=== PATIENT | female | born 1985 | race Caucasian/White ===

== ENCOUNTER 2016-12-12 17:03 | Emergency (ER) | payer OTHER ==
[~2016-12-12 17:03] MED LIST: ALBU0.5N IN; ALBU17IN INH; DOCU10ELUD PO; FLAG500T PO; GAS80CHW PO; IBUP100SUS; MEDR1VL IM; PERCOCET PO; TRAZPOW PO; TYLE325T5 PO; VENL37TA PO; VIBR100C PO
--- NOTE | 2016-12-12 17:44 | EDDOCDS ---
Physician Documentation [facility] Name: Jenna Escobar Age: 31 yrs Sex: Female : 1985 Arrival Date: 12/12/2016 Time: 17:03 Bed TR7 Private MD: [facility] Disposition: 12/12/16 17:30 Discharged to Home/Self Care. Impression: Low back pain. - Condition is Stable. - Discharge Instructions: Back Pain, Adult. - Prescriptions for Naprosyn 500 mg Oral Tablet - take 1 tablet by ORAL route 2 times per day take with food; 30 tablet. Cyclobenzaprine 10 mg Oral Tablet - take 1 tablet by ORAL route 3 times per day As needed; 15 tablet. - Medication Reconciliation form. - Follow up: [facility]; When: Call to arrange an appointment; Reason: Wound/Symptom Recheck, Recheck today's complaints, Worsening of conditions, Continuance of care. - Problem is new. - Symptoms are unchanged. Historical: - Allergies: SULFA (SULFONAMIDES); - Home Meds: 1. albuterol sulfate 90 mcg/actuation Inhl HFAA every 4-6 hours 2. albuterol sulfate 2.5 mg /3 mL (0.083 %) Inhl nebu as needed 3. aripiprazole 2 mg Oral tab daily (Last dose: Unknown) 4. buspirone 10 mg Oral tab 2 times per day (Last dose: Unknown) - PMHx: Anxiety; Depression; Asthma; - PSHx: Laparoscopy; D & C; - Social history: Smoking status: Patient states former smoker of tobacco. No barriers to communication noted, The patient speaks fluent Irish, Speaks appropriately for age. - Family history: Not pertinent. - : The pt / caregiver states he / she is not on anticoagulants. Home medication list is obtained from the patient, [employer] import data. - Exposure Risk Screening:: None identified. 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 7 in. (170.18 cm) (R); Pain 06/25; 17:05 Body Mass Index 34.36 (99.52 kg, 170.18 cm) gr2 MDM: 17:22 Urine Dip ordered. cc10 Point of Care Testing: Urine Dip: 17:29 pH: 5; ; Specific [place]: 1.020; Ketones: Negative; Glucose: Negative; Protein: srm Negative; Leukocytes: Negative; Nitrite: Negative ; Blood: Negative; Bilirubin: Negative ; Urobilinogen: Normal Ranges: Signatures: Kandice Guillen, MONIQUE RN srm Lobito Wills, PA-C PA-C cc10 Kia DennisRN RN js15 MTDD
--- NOTE | 2016-12-12 17:44 | EDDOCDS ---
Nurse's Notes [facility] Name: Jenna Escobar Age: 31 yrs Sex: Female : 1985 Arrival Date: 12/12/2016 Time: 17:03 Bed TR7 Private MD: [facility] Diagnosis: Low back pain Presentation: 12/12 17:12 Presenting complaint: Patient states: "This morning I noticed when I bent over there js15 was a pain in my back. I thought it was a kidney infection but it's gotten progressively worse. Now it's in the front on the right side and I'm nauseated". Acute neurological deficits are not present. Mechanism of Injury: No Mechanism of Injury. Adult Sepsis Screening: The patient does not have new or worsening altered mentation. Patient's respiratory rate is less than 22. Systolic blood pressure is greater than 100. Patient has a qSOFA score of 0- Negative Sepsis Screen. Suicide/Homicide risk assessment- the patient denies having any suicidal and/or homicidal ideations and does not present with any other emotional, behavioral or mental health complaints. 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 Transition of care: patient was not received from another setting of care. 17:12 Acuity: CHRISTINE Level 3 js15 17:12 Method Of Arrival: Walkin/Carried/Asstd js15 Triage Assessment: 17:15 General: Appears in no apparent distress, Behavior is appropriate for age, cooperative. js15 Pain: Location: right low back and right lower quadrant Pain currently is 7 out of 10 on a pain scale. Quality of pain is described as sharp. HIV screening NA for this visit Offered previously. GI: Reports nausea. Musculoskeletal: Reports pain in right low back. 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 albuterol sulfate 90 mcg/actuation Inhl HFAA every 4-6 hours 2. albuterol sulfate 2.5 mg /3 mL (0.083 %) Inhl nebu as needed 3. aripiprazole 2 mg Oral tab daily (Last dose: Unknown) 4. buspirone 10 mg Oral tab 2 times per day (Last dose: Unknown) - PMHx: Anxiety; Depression; Asthma; - PSHx: Laparoscopy; D & C; - Social history: Smoking status: Patient states former smoker of tobacco. No barriers to communication noted, The patient speaks fluent Armenian, Speaks appropriately for age. - Family history: Not pertinent. - : The pt / caregiver states he / she is not on anticoagulants. Home medication list is obtained from the patient, [employer] import data. - Exposure Risk Screening:: None identified. Screenin:41 Screening information is obtained from the patient. Fall risk: No risks identified. srm Assistance ADL's: requires no assistance with activities of daily living. Abuse/DV Screen: The patient / caregiver reports he/she is: not in a situation that causes fear, pain or injury. Nutritional screening: No deficits noted. Advance Directives: There is no active DNR order. home support is adequate. Assessment: 17:36 General: Appears in no apparent distress, Behavior is appropriate for age, cooperative. srm Musculoskeletal: Reports pain right lower back. pt upset with discharge dx and instructions. states " i know its not a pulled muscle" but denies any other injuries or symptoms. also states my urine usually comes out clean and they treat me any ways. informed pt that we cant just treat for UTI like symptoms if the urine shows clean. also reiterated urine showed no blood to show kidney stone at this time. encouraged f/u with GME. Vital Signs: 17:05 BP 134 / 80; Pulse 70; Resp 18 S; Temp 97.0(O); Pulse Ox 98% on R/A; Weight 99.52 kg gr2 (M); Height 5 ft. 7 in. (170.18 cm) (R); Pain 8/10; 17:05 Body Mass Index 34.36 (99.52 kg, 170.18 cm) gr2 Vitals: 17:05 Log In Time: December 12, 2016 at 17:05. gr2 ED Course: 17:05 Patient visited by Ramona Adame. gr2 17:05 [facility] is Private Physician. gr2 17:05 Patient moved to Waiting gr2 17:07 Patient visited by Ramona Adame. gr2 17:07 Patient moved to Pre RCE gr2 17:11 Patient moved to Triage 3 [facility] 17:13 Lobito Wills PA-C is [facility]. cc10 17:13 Karin Orozco MD is Attending Physician. cc10 17:14 Triage Initiated js15 17:17 Patient visited by Lobito Wills PA-C. cc10 17:17 Patient visited by Lobito Wills PA-C. cc10 17:29 Patient visited by Kandice Guillen RN. [facility] 17:30 [facility] is Referral Physician. [facility] 17:41 Patient moved to [address] 17:41 The patient / caregiver is instructed regarding the plan of care and ED course. srm Accompanied by Significant Other, Patient has correct armband on for positive identification. 17:41 No IV's were initiated during this patient's visit. No IV's were initiated during this [facility] patient's visit. No procedures done that require assistance. Point of Care Testing: Urine Dip: 17:29 pH: 5; ; Specific [place]: 1.020; Ketones: Negative; Glucose: Negative; Protein: srm Negative; Leukocytes: Negative; Nitrite: Negative ; Blood: Negative; Bilirubin: Negative ; Urobilinogen: Normal Ranges: Order Results: There are currently no results for this order. Outcome: 17:30 Discharge ordered by Provider. [facility] 17:41 Discharge Assessment: Patient awake, alert and oriented x 3. No cognitive and/or srm functional deficits noted. Patient verbalized understanding of disposition instructions. patient administered narcotics - no. The following High Risk Discharge criteria are identified: None. Discharged to home ambulatory, with significant other. Condition: good Condition: stable. Discharge instructions given to patient, Instructed on discharge instructions, follow up and referral plans. medication usage, Demonstrated understanding of instructions, medications, Pt was receptive of discharge instructions/ teaching. Prescriptions given X 2. No special radiology studies were completed. Property :Personal belongings accompany Pt. 17:43 Patient left the ED. srm Signatures: Kandice Guillen, RN RN [facility] Ramona Adame gr2 Lobito Wills PA-C PA-C cc Kia Dennis RN RN js15 Corrections: (The following items were deleted from the chart) 17:43 17:36 Musculoskeletal: Reports pain right lower back. pt upset with discharge dx and srm instructions. states " i know its not a pulled muscle" but denies any other injuries or symptoms. srm MTDD
--- NOTE | 2016-12-14 18:45 | EDDOCDS ---
Nurse's Notes [facility] Name: Jenna Escobar Age: 31 yrs Sex: Female : 1985 Arrival Date: 12/12/2016 Time: 17:03 Bed TR7 Private MD: [facility] Diagnosis: Low back pain Presentation: 12/12 17:12 Presenting complaint: Patient states: "This morning I noticed when I bent over there js15 was a pain in my back. I thought it was a kidney infection but it's gotten progressively worse. Now it's in the front on the right side and I'm nauseated". Acute neurological deficits are not present. Mechanism of Injury: No Mechanism of Injury. Adult Sepsis Screening: The patient does not have new or worsening altered mentation. Patient's respiratory rate is less than 22. Systolic blood pressure is greater than 100. Patient has a qSOFA score of 0- Negative Sepsis Screen. Suicide/Homicide risk assessment- the patient denies having any suicidal and/or homicidal ideations and does not present with any other emotional, behavioral or mental health complaints. 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 Transition of care: patient was not received from another setting of care. 17:12 Acuity: CHRISTINE Level 3 js15 17:12 Method Of Arrival: Walkin/Carried/Asstd js15 Triage Assessment: 17:15 General: Appears in no apparent distress, Behavior is appropriate for age, cooperative. js15 Pain: Location: right low back and right lower quadrant Pain currently is 7 out of 10 on a pain scale. Quality of pain is described as sharp. HIV screening NA for this visit Offered previously. GI: Reports nausea. Musculoskeletal: Reports pain in right low back. 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 albuterol sulfate 90 mcg/actuation Inhl HFAA every 4-6 hours 2. albuterol sulfate 2.5 mg /3 mL (0.083 %) Inhl nebu as needed 3. aripiprazole 2 mg Oral tab daily (Last dose: Unknown) 4. buspirone 10 mg Oral tab 2 times per day (Last dose: Unknown) - PMHx: Anxiety; Depression; Asthma; - PSHx: Laparoscopy; D & C; - Social history: Smoking status: Patient states former smoker of tobacco. No barriers to communication noted, The patient speaks fluent Gibraltarian, Speaks appropriately for age. - Family history: Not pertinent. - : The pt / caregiver states he / she is not on anticoagulants. Home medication list is obtained from the patient, [employer] import data. - Exposure Risk Screening:: None identified. Screenin:41 Screening information is obtained from the patient. Fall risk: No risks identified. srm Assistance ADL's: requires no assistance with activities of daily living. Abuse/DV Screen: The patient / caregiver reports he/she is: not in a situation that causes fear, pain or injury. Nutritional screening: No deficits noted. Advance Directives: There is no active DNR order. home support is adequate. Assessment: 17:36 General: Appears in no apparent distress, Behavior is appropriate for age, cooperative. srm Musculoskeletal: Reports pain right lower back. pt upset with discharge dx and instructions. states " i know its not a pulled muscle" but denies any other injuries or symptoms. also states my urine usually comes out clean and they treat me any ways. informed pt that we cant just treat for UTI like symptoms if the urine shows clean. also reiterated urine showed no blood to show kidney stone at this time. encouraged f/u with GME. Vital Signs: 17:05 BP 134 / 80; Pulse 70; Resp 18 S; Temp 97.0(O); Pulse Ox 98% on R/A; Weight 99.52 kg gr2 (M); Height 5 ft. 7 in. (170.18 cm) (R); Pain 8/10; 17:05 Body Mass Index 34.36 (99.52 kg, 170.18 cm) gr2 Vitals: 17:05 Log In Time: December 12, 2016 at 17:05. gr2 ED Course: 17:05 Patient visited by Ramona Adame. gr2 17:05 [facility] is Private Physician. gr2 17:05 Patient moved to Waiting gr2 17:07 Patient visited by Ramona Adame. gr2 17:07 Patient moved to Pre RCE gr2 17:11 Patient moved to Triage 3 [facility] 17:13 Lobito Wills PA-C is [facility]. cc10 17:13 Karin Orozco MD is Attending Physician. cc10 17:14 Triage Initiated js15 17:17 Patient visited by Lobito Wills PA-C. cc10 17:17 Patient visited by Lobito Wills PA-C. cc10 17:29 Patient visited by Kandice Guillen RN. [facility] 17:30 [facility] is Referral Physician. cc 17:41 Patient moved to [address] 17:41 The patient / caregiver is instructed regarding the plan of care and ED course. srm Accompanied by Significant Other, Patient has correct armband on for positive identification. 17:41 No IV's were initiated during this patient's visit. No IV's were initiated during this [facility] patient's visit. No procedures done that require assistance. 17:50 [facility] Payment Agreement was scanned into [employer] and attached to record. [facility] 17:53 Patient name changed from Jenna\\S\\Paola\\S\\Kimmett\\S\\ to Jenna\\S\\A\\S\\Kimmett. EDND 12/13 07:52 T-Sheet-- Draft Copy was scanned into [employer] and attached to record. [facility] Point of Care Testing: Urine Dip: 12/12 17:29 pH: 5; ; Specific [place]: 1.020; Ketones: Negative; Glucose: Negative; Protein: srm Negative; Leukocytes: Negative; Nitrite: Negative ; Blood: Negative; Bilirubin: Negative ; Urobilinogen: Normal Ranges: Order Results: There are currently no results for this order. Outcome: 17:30 Discharge ordered by Provider. [facility] 17:41 Discharge Assessment: Patient awake, alert and oriented x 3. No cognitive and/or srm functional deficits noted. Patient verbalized understanding of disposition instructions. patient administered narcotics - no. The following High Risk Discharge criteria are identified: None. Discharged to home ambulatory, with significant other. Condition: good Condition: stable. Discharge instructions given to patient, Instructed on discharge instructions, follow up and referral plans. medication usage, Demonstrated understanding of instructions, medications, Pt was receptive of discharge instructions/ teaching. Prescriptions given X 2. No special radiology studies were completed. Property :Personal belongings accompany Pt. 17:43 Patient left the ED. [facility] Signatures: Dispatcher [employer] EDND Wilmer, Kandice, RN Ramona Urbina gr2 Lobito Wills PADavidC PA-C cc10 Kia Dennis RN RN js15 Camilla Strong Sarah seh Corrections: (The following items were deleted from the chart) 17:43 17:36 Musculoskeletal: Reports pain right lower back. pt upset with discharge dx and srm instructions. states " i know its not a pulled muscle" but denies any other injuries or symptoms. srm Chart Complete MTDD
--- NOTE | 2016-12-14 18:45 | EDDOCDS ---
Physician Documentation [facility] Name: Jenna Escobar Age: 31 yrs Sex: Female : 1985 Arrival Date: 12/12/2016 Time: 17:03 Bed TR7 Private MD: [facility] Disposition: 12/12/16 17:30 Discharged to Home/Self Care. Impression: Low back pain. - Condition is Stable. - Discharge Instructions: Back Pain, Adult. - Prescriptions for Naprosyn 500 mg Oral Tablet - take 1 tablet by ORAL route 2 times per day take with food; 30 tablet. Cyclobenzaprine 10 mg Oral Tablet - take 1 tablet by ORAL route 3 times per day As needed; 15 tablet. - Medication Reconciliation form. - Follow up: [facility]; When: Call to arrange an appointment; Reason: Wound/Symptom Recheck, Recheck today's complaints, Worsening of conditions, Continuance of care. - Problem is new. - Symptoms are unchanged. Historical: - Allergies: SULFA (SULFONAMIDES); - Home Meds: 1. albuterol sulfate 90 mcg/actuation Inhl HFAA every 4-6 hours 2. albuterol sulfate 2.5 mg /3 mL (0.083 %) Inhl nebu as needed 3. aripiprazole 2 mg Oral tab daily (Last dose: Unknown) 4. buspirone 10 mg Oral tab 2 times per day (Last dose: Unknown) - PMHx: Anxiety; Depression; Asthma; - PSHx: Laparoscopy; D & C; - Social history: Smoking status: Patient states former smoker of tobacco. No barriers to communication noted, The patient speaks fluent Wolof, Speaks appropriately for age. - Family history: Not pertinent. - : The pt / caregiver states he / she is not on anticoagulants. Home medication list is obtained from the patient, [employer] import data. - Exposure Risk Screening:: None identified. 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 7 in. (170.18 cm) (R); Pain 06/25; 17:05 Body Mass Index 34.36 (99.52 kg, 170.18 cm) gr2 MDM: 17:22 Urine Dip ordered. cc10 17:50 [facility] Payment Agreement was scanned into [employer] and attached to record. [facility] 17:50 Financial registration complete. [facility] 12/13 07:52 T-Sheet-- Draft Copy was scanned into [employer] and attached to record. [facility] Point of Care Testing: Urine Dip: 12/12 17:29 pH: 5; ; Specific [place]: 1.020; Ketones: Negative; Glucose: Negative; Protein: srm Negative; Leukocytes: Negative; Nitrite: Negative ; Blood: Negative; Bilirubin: Negative ; Urobilinogen: Normal Ranges: Signatures: Kandice Guillen RN RN srm Lobito Wills, PA-C PA-C cc10 Kia Dennis RN RN js Camilla Strong [facility] Karin Bang [facility] The chart was reviewed and I authenticate all verbal orders and agree with the evaluation and treatment provided.Attachments: 17:50 [facility] Payment Agreement [facility] 12/13 07:52 T-Sheet-- Draft Copy [facility] Chart Complete MTDD
--- NOTE | 2016-12-14 18:45 | EDDOCDS ---
Physician Documentation [facility] Name: Jenna Escobar Age: 31 yrs Sex: Female : 1985 Arrival Date: 12/12/2016 Time: 17:03 Bed TR7 Private MD: [facility] Disposition: 12/12/16 17:30 Discharged to Home/Self Care. Impression: Low back pain. - Condition is Stable. - Discharge Instructions: Back Pain, Adult. - Prescriptions for Naprosyn 500 mg Oral Tablet - take 1 tablet by ORAL route 2 times per day take with food; 30 tablet. Cyclobenzaprine 10 mg Oral Tablet - take 1 tablet by ORAL route 3 times per day As needed; 15 tablet. - Medication Reconciliation form. - Follow up: [facility]; When: Call to arrange an appointment; Reason: Wound/Symptom Recheck, Recheck today's complaints, Worsening of conditions, Continuance of care. - Problem is new. - Symptoms are unchanged. Historical: - Allergies: SULFA (SULFONAMIDES); - Home Meds: 1. albuterol sulfate 90 mcg/actuation Inhl HFAA every 4-6 hours 2. albuterol sulfate 2.5 mg /3 mL (0.083 %) Inhl nebu as needed 3. aripiprazole 2 mg Oral tab daily (Last dose: Unknown) 4. buspirone 10 mg Oral tab 2 times per day (Last dose: Unknown) - PMHx: Anxiety; Depression; Asthma; - PSHx: Laparoscopy; D & C; - Social history: Smoking status: Patient states former smoker of tobacco. No barriers to communication noted, The patient speaks fluent Tajik, Speaks appropriately for age. - Family history: Not pertinent. - : The pt / caregiver states he / she is not on anticoagulants. Home medication list is obtained from the patient, [employer] import data. - Exposure Risk Screening:: None identified. 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 7 in. (170.18 cm) (R); Pain 06/25; 17:05 Body Mass Index 34.36 (99.52 kg, 170.18 cm) gr2 MDM: 17:22 Urine Dip ordered. cc10 17:50 [facility] Payment Agreement was scanned into [employer] and attached to record. [facility] 17:50 Financial registration complete. [facility] 12/13 07:52 T-Sheet-- Draft Copy was scanned into [employer] and attached to record. [facility] Point of Care Testing: Urine Dip: 12/12 17:29 pH: 5; ; Specific [place]: 1.020; Ketones: Negative; Glucose: Negative; Protein: srm Negative; Leukocytes: Negative; Nitrite: Negative ; Blood: Negative; Bilirubin: Negative ; Urobilinogen: Normal Ranges: Signatures: Kandice Guillen RN RN srm Lobito Wills, PA-C PA-C cc10 Kia Dennis RN RN js Camilla Strong [facility] Karin Bang [facility] The chart was reviewed and I authenticate all verbal orders and agree with the evaluation and treatment provided.Attachments: 17:50 [facility] Payment Agreement [facility] 12/13 07:52 T-Sheet-- Draft Copy [facility] Chart Complete MTDD
== END 2016-12-12 17:43 | disposition home or self-care (01) ==
LOC: M ED 17:03
DX: M54.5 Low back pain (principal); F41.9 Anxiety disorder, unspecified; F32.9 Major depressive disorder, single episode, unspecified; J45.909 Unspecified asthma, uncomplicated; Z87.891 Personal history of nicotine dependence; Z79.3 Long term (current) use of hormonal contraceptives; Z79.899 Other long term (current) drug therapy; Z88.2 Allergy status to sulfonamides

== ENCOUNTER → 2016-12-15 | Outpatient (REF) | payer OTHER ==
[2016-12-15 15:57] LABS: MEAN CORPUSCULAR HEMOGLOBIN 30.1 pg (27.0-33.0); MEAN CORPUSCULAR VOLUME 88.4 fl (80.0-96.0); RED CELL DISTRIBUTION WIDTH 12.7 % (11.5-14.5); WHITE BLOOD COUNT 7.5 K/mm3 (4.0-10.0)
[2016-12-15 16:25] LABS: ALBUMIN 4.1 GM/DL (3.2-5.2); ALBUMIN/GLOBULIN RATIO 1.41 (1.00-1.93); ALKALINE PHOSPHATASE 72 U/L (45-117); ALT/SGPT 22 U/L (12-78); AMYLASE 47 U/L (25-115); ANION GAP 9 MEQ/L (8-16); AST/SGOT 9 U/L (15-37); BILIRUBIN,TOTAL 0.3 MG/DL (0.2-1.0); BLOOD UREA NITROGEN 8 MG/DL (7-18); CALCIUM LEVEL 8.8 MG/DL (8.5-10.1); CARBON DIOXIDE LEVEL 23 MEQ/L (21-32); CHLORIDE LEVEL 109 MEQ/L (98-107); CREATININE FOR GFR 0.65 MG/DL (0.55-1.02); GLOMERULAR FILTRATION RATE > 60.0 (>60); GLUCOSE, FASTING 87 MG/DL (70-105); POTASSIUM SERUM 3.9 MEQ/L (3.5-5.1); SODIUM LEVEL 141 MEQ/L (136-145)
[2016-12-15 21:28] LABS: BASOPHILS 1 % (0-4); EOSINOPHILS 1 % (0-5)
== END ==
LOC: M SFHCPLAZ 14:31
PROVIDERS: ATTEND Family Medicine
DX: R10.11 Right upper quadrant pain (principal)

== ENCOUNTER → 2016-12-17 | Outpatient (CLI) | payer OTHER ==
--- NOTE | 2016-12-17 07:32 | REP ---
Clinical: Right upper quadrant abdominal pain. Technique: Robles scale ultrasound using curved array transducer. Findings: The liver and pancreas are normal in contour, size, and echogenicity without focal hepatic or pancreatic lesions identified. The gallbladder is normal without gallstones, wall thickening or pericholecystic fluid. No biliary ductal dilatation is appreciated, and the common bile duct measures 4.3 mm diameter. The right kidney is normal in reniform shape without hydronephrosis and measures 10.7 x 5.6 x 5.2 cm. No ascites. Visualized portions of the abdominal aorta normal. Impression: Normal right upper quadrant and gallbladder abdominal ultrasound. Signed by Noe Raya MD 12/17/2016 07:23 A
== END ==
LOC: M RAD 06:52
PROVIDERS: ATTEND Family Medicine
DX: R10.11 Right upper quadrant pain (principal)

== ENCOUNTER 2017-01-01 15:59 | Emergency (ER) | payer OTHER ==
--- NOTE | 2017-01-01 16:56 | EDDOCDS ---
Physician Documentation [facility] Name: Jenna Escobar Age: 31 yrs Sex: Female : 1985 Arrival Date: 01/01/2017 Time: 15:59 Bed Triage 1 Private MD: Disposition: 01/01/17 16:48 Discharged to Home/Self Care. Impression: Acute sinusitis, Acute serous otitis media, right ear, Other otitis externa, unspecified ear - Right. - Condition is Stable. - Discharge Instructions: Otitis Externa, Rsqn-en-Ijil, Otitis Media, Adult, Soop-cu-Yudv, Sinusitis, Zwby-un-Dhuy. - Prescriptions for Augmentin 875- 125 mg Oral Tablet - take 1 tablet by ORAL route every 12 hours for 10 days; 20 tablet. Cipro HC 0.2- 1 % Otic Drops, Suspension - instill 3 drops by OTIC route every 12 hours for 7 days Treating Otitis Externa, Right Ear; 10 milliliter. Ibuprofen 800 mg Oral Tablet - take 1 tablet by ORAL route every 8 hours As needed take with food; 30 tablet. - Medication Reconciliation, Local Pharmacy Hours form. - [facility] ; When: 1 - 2 days; Reason: Recheck today's complaints, Continuance of care. Follow up: Emergency Department; Reason: Worsening of conditions. - Problem is new. - Symptoms are unchanged. Historical: - Allergies: SULFA (SULFONAMIDES) (Rash); - Home Meds: 1. albuterol sulfate 90 mcg/actuation Inhl HFAA every 4-6 hours 2. albuterol sulfate 2.5 mg /3 mL (0.083 %) Inhl nebu as needed 3. Depo-Provera 150 mg/mL IM susp every 3 mo 4. Mobic 7.5 mg oral tab - PMHx: Anxiety; Asthma; Depression; - PSHx: Laparoscopy; D & C; - Social history: Smoking status: Patient states former smoker of tobacco. No barriers to communication noted, The patient speaks fluent Turkish. - Family history: Not pertinent. - : The pt / caregiver states he / she is not on anticoagulants. Home medication list is obtained from the patient. - Exposure Risk Screening:: None identified. 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 7 in. (170.18 cm) (R); Pain 6/10; 16:03 Body Mass Index 34.46 (99.79 kg, 170.18 cm) lr2 Signatures: Nba Strong RN RN mlb1 Sheba Vuong PA-C PA-C ef1 Chela Desouza RN RN rs3 MTDD
--- NOTE | 2017-01-01 16:56 | EDDOCDS ---
Nurse's Notes [facility] Name: Jenna Escobar Age: 31 yrs Sex: Female : 1985 Arrival Date: 01/01/2017 Time: 15:59 Bed Triage 1 Private MD: Diagnosis: Acute sinusitis;Acute serous otitis media, right ear;Other otitis externa, unspecified ear-Right Presentation: 01/01 16:03 Presenting complaint: Patient states: sinus pain and pressure for two days. right ear rs3 pain, sore throat today. Adult Sepsis Screening: The patient does not have new or worsening altered mentation. Patient's respiratory rate is less than 22. Systolic blood pressure is greater than 100. Patient has a qSOFA score of 0- Negative Sepsis Screen. Suicide/Homicide risk assessment- the patient denies having any suicidal and/or homicidal ideations and does not present with any other emotional, behavioral or mental health complaints. Status: Patient is not a territory service representative or dependent. Transition of care: patient was not received from another setting of care. 16:03 Acuity: CHRISTINE Level 4 rs3 16:03 Method Of Arrival: Walkin/Carried/Asstd rs3 Triage Assessment: 16:05 General: Appears in no apparent distress. Pain: Location: right ear. HIV screening NA rs3 for this visit Offered previously. EENT: Reports pain Pain is 6 out of 10 on a pain scale. 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 albuterol sulfate 90 mcg/actuation Inhl HFAA every 4-6 hours 2. albuterol sulfate 2.5 mg /3 mL (0.083 %) Inhl nebu as needed 3. Depo-Provera 150 mg/mL IM susp every 3 mo 4. Mobic 7.5 mg oral tab - PMHx: Anxiety; Asthma; Depression; - PSHx: Laparoscopy; D & C; - Social history: Smoking status: Patient states former smoker of tobacco. No barriers to communication noted, The patient speaks fluent Dominican. - Family history: Not pertinent. - : The pt / caregiver states he / she is not on anticoagulants. Home medication list is obtained from the patient. - Exposure Risk Screening:: None identified. Screenin:54 Screening information is obtained from the patient. Fall risk: No risks identified. mlb1 Assistance ADL's: requires no assistance with activities of daily living. Abuse/DV Screen: The patient / caregiver reports he/she is: not in a situation that causes fear, pain or injury. Nutritional screening: No deficits noted. Advance Directives: Currently, there is no health care proxy. home support is adequate. Assessment: 16:53 General: Appears in no apparent distress, Behavior is appropriate for age, cooperative. mlb1 Pain: Location: right ear Pain currently is 6 out of 10 on a pain scale. Respiratory: No deficits noted. Derm: No deficits noted. Vital Signs: 16:03 BP 148 / 81; Pulse 68; Resp 16; Temp 97.4(O); Pulse Ox 98% on R/A; Weight 99.79 kg (R); lr2 Height 5 ft. 7 in. (170.18 cm) (R); Pain 6/10; 16:03 Body Mass Index 34.46 (99.79 kg, 170.18 cm) lr2 Vitals: 16:03 Log In Time: January 01, 2017 at 15:59. lr2 ED Course: 16:01 Patient visited by Brina Trent. lr2 16:01 Patient moved to Waiting lr2 16:02 Patient moved to Pre RCE lr2 16:04 Triage Initiated rs3 16:08 Patient moved to Triage 1 ck1 16:24 [facility] ef1 16:24 Kevin May MD is Attending Physician. ef1 16:31 Patient visited by Sheba Vuong PA-C. ef1 16:48 [facility] is Referral Physician. ef1 16:54 No IV's were initiated during this patient's visit. No procedures done that require mlb1 assistance. 16:55 Patient visited by Nba Strong RN. mlb1 16:55 The patient / caregiver is instructed regarding the plan of care and ED course. mlb1 Order Results: There are currently no results for this order. Outcome: 16:48 Discharge ordered by Provider. ef1 16:54 Discharge Assessment: Patient awake, alert and oriented x 3. No cognitive and/or mlb1 functional deficits noted. Patient verbalized understanding of disposition instructions. patient administered narcotics - no. The following High Risk Discharge criteria are identified: None. Discharged to home ambulatory. Condition: good. Discharge instructions given to patient, Instructed on discharge instructions, follow up and referral plans. medication usage, Demonstrated understanding of instructions, medications, Pt was receptive of discharge instructions/ teaching. Prescriptions given X 3. No special radiology studies were completed. Property sent home with patient. 16:55 Patient left the ED. mlb1 Signatures: Nba Strong RN RN mlb1 Rubia MoniqueRN RN ck1 Sheba Vuong PA-C PA-C ef1 Chela DesouzaRN RN rs3 Brina Trent2 MTDD
--- NOTE | 2017-01-03 17:56 | EDDOCDS ---
Nurse's Notes [facility] Name: Jenna Escobar Age: 31 yrs Sex: Female : 1985 Arrival Date: 01/01/2017 Time: 15:59 Bed Triage 1 Private MD: Diagnosis: Acute sinusitis;Acute serous otitis media, right ear;Other otitis externa, unspecified ear-Right Presentation: 01/01 16:03 Presenting complaint: Patient states: sinus pain and pressure for two days. right ear rs3 pain, sore throat today. Adult Sepsis Screening: The patient does not have new or worsening altered mentation. Patient's respiratory rate is less than 22. Systolic blood pressure is greater than 100. Patient has a qSOFA score of 0- Negative Sepsis Screen. Suicide/Homicide risk assessment- the patient denies having any suicidal and/or homicidal ideations and does not present with any other emotional, behavioral or mental health complaints. 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 Transition of care: patient was not received from another setting of care. 16:03 Acuity: CHRISTINE Level 4 rs3 16:03 Method Of Arrival: Walkin/Carried/Asstd rs3 Triage Assessment: 16:05 General: Appears in no apparent distress. Pain: Location: right ear. HIV screening NA rs3 for this visit Offered previously. EENT: Reports pain Pain is 6 out of 10 on a pain scale. 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 albuterol sulfate 90 mcg/actuation Inhl HFAA every 4-6 hours 2. albuterol sulfate 2.5 mg /3 mL (0.083 %) Inhl nebu as needed 3. Depo-Provera 150 mg/mL IM susp every 3 mo 4. Mobic 7.5 mg oral tab - PMHx: Anxiety; Asthma; Depression; - PSHx: Laparoscopy; D & C; - Social history: Smoking status: Patient states former smoker of tobacco. No barriers to communication noted, The patient speaks fluent Bruneian. - Family history: Not pertinent. - : The pt / caregiver states he / she is not on anticoagulants. Home medication list is obtained from the patient. - Exposure Risk Screening:: None identified. Screenin:54 Screening information is obtained from the patient. Fall risk: No risks identified. mlb1 Assistance ADL's: requires no assistance with activities of daily living. Abuse/DV Screen: The patient / caregiver reports he/she is: not in a situation that causes fear, pain or injury. Nutritional screening: No deficits noted. Advance Directives: Currently, there is no health care proxy. home support is adequate. Assessment: 16:53 General: Appears in no apparent distress, Behavior is appropriate for age, cooperative. mlb1 Pain: Location: right ear Pain currently is 6 out of 10 on a pain scale. Respiratory: No deficits noted. Derm: No deficits noted. Vital Signs: 16:03 BP 148 / 81; Pulse 68; Resp 16; Temp 97.4(O); Pulse Ox 98% on R/A; Weight 99.79 kg (R); lr2 Height 5 ft. 7 in. (170.18 cm) (R); Pain 6/10; 16:03 Body Mass Index 34.46 (99.79 kg, 170.18 cm) lr2 Vitals: 16:03 Log In Time: January 01, 2017 at 15:59. lr2 ED Course: 16:01 Patient visited by Brina Trent. lr2 16:01 Patient moved to Waiting lr2 16:02 Patient moved to Pre RCE lr2 16:04 Triage Initiated rs3 16:08 Patient moved to Triage 1 ck1 16:24 Sheba Vu[facility]C [facility]. ef1 16:24 Kevin May MD is Attending Physician. ef1 16:31 Patient visited by Sheba Vuong PA-C. ef1 16:48 [facility] is Referral Physician. ef1 16:54 No IV's were initiated during this patient's visit. No procedures done that require mlb1 assistance. 16:55 Patient visited by Nba Strong RN. mlb1 16:55 The patient / caregiver is instructed regarding the plan of care and ED course. mlb1 16:58 [facility] Payment Agreement was scanned into [employer] and attached to record. ks16 01/02 11:28 T-Sheet-- Draft Copy was scanned into [employer] and attached to record. gb Order Results: There are currently no results for this order. Outcome: 01/01 16:48 Discharge ordered by Provider. ef1 16:54 Discharge Assessment: Patient awake, alert and oriented x 3. No cognitive and/or mlb1 functional deficits noted. Patient verbalized understanding of disposition instructions. patient administered narcotics - no. The following High Risk Discharge criteria are identified: None. Discharged to home ambulatory. Condition: good. Discharge instructions given to patient, Instructed on discharge instructions, follow up and referral plans. medication usage, Demonstrated understanding of instructions, medications, Pt was receptive of discharge instructions/ teaching. Prescriptions given X 3. No special radiology studies were completed. Property sent home with patient. 16:55 Patient left the ED. mlb1 Signatures: Lashell Claire, Reg Reg gb Nba Strong RN RN mlb1 Rubia Monique RN RN ck1 Sheba Vuong, PA-C PA-C ef1 Chela Desouza RN RN rs3 Tyra Mills, Reg Reg ks16 Brina Trent lr2 Chart Complete MTDD
--- NOTE | 2017-01-03 17:56 | EDDOCDS ---
Physician Documentation [facility] Name: Jenna Escobar Age: 31 yrs Sex: Female : 1985 Arrival Date: 01/01/2017 Time: 15:59 Bed Triage 1 Private MD: Disposition: 01/01/17 16:48 Discharged to Home/Self Care. Impression: Acute sinusitis, Acute serous otitis media, right ear, Other otitis externa, unspecified ear - Right. - Condition is Stable. - Discharge Instructions: Otitis Externa, Xibe-qa-Wugr, Otitis Media, Adult, Ttup-gi-Ytpm, Sinusitis, Tdgv-ve-Wfcq. - Prescriptions for Augmentin 875- 125 mg Oral Tablet - take 1 tablet by ORAL route every 12 hours for 10 days; 20 tablet. Cipro HC 0.2- 1 % Otic Drops, Suspension - instill 3 drops by OTIC route every 12 hours for 7 days Treating Otitis Externa, Right Ear; 10 milliliter. Ibuprofen 800 mg Oral Tablet - take 1 tablet by ORAL route every 8 hours As needed take with food; 30 tablet. - Medication Reconciliation, Local Pharmacy Hours form. - [facility] ; When: 1 - 2 days; Reason: Recheck today's complaints, Continuance of care. Follow up: Emergency Department; Reason: Worsening of conditions. - Problem is new. - Symptoms are unchanged. Historical: - Allergies: SULFA (SULFONAMIDES) (Rash); - Home Meds: 1. albuterol sulfate 90 mcg/actuation Inhl HFAA every 4-6 hours 2. albuterol sulfate 2.5 mg /3 mL (0.083 %) Inhl nebu as needed 3. Depo-Provera 150 mg/mL IM susp every 3 mo 4. Mobic 7.5 mg oral tab - PMHx: Anxiety; Asthma; Depression; - PSHx: Laparoscopy; D & C; - Social history: Smoking status: Patient states former smoker of tobacco. No barriers to communication noted, The patient speaks fluent Frisian. - Family history: Not pertinent. - : The pt / caregiver states he / she is not on anticoagulants. Home medication list is obtained from the patient. - Exposure Risk Screening:: None identified. 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 7 in. (170.18 cm) (R); Pain 6/10; 16:03 Body Mass Index 34.46 (99.79 kg, 170.18 cm) lr2 MDM: 16:57 Financial registration complete. [facility] 16:58 [facility] Payment Agreement was scanned into [employer] and attached to record. 01/02 11:28 T-Sheet-- Draft Copy was scanned into [employer] and attached to record. gb Signatures: Lashell Claire, Reg Reg gb Nba Strong RN RN mlb1 Sheba Vuong, PA-C PA-C ef1 Chela Desouza RN RN rs3 Tyra Mills, Reg Reg ks16 The chart was reviewed and I authenticate all verbal orders and agree with the evaluation and treatment provided.Attachments: 01/01 16:58 [facility] Payment Agreement 01/02 11:28 T-Sheet-- Draft Copy gb Chart Complete MTDD
--- NOTE | 2017-01-03 17:56 | EDDOCDS ---
Physician Documentation [facility] Name: Jenna Escobar Age: 31 yrs Sex: Female : 1985 Arrival Date: 01/01/2017 Time: 15:59 Bed Triage 1 Private MD: Disposition: 01/01/17 16:48 Discharged to Home/Self Care. Impression: Acute sinusitis, Acute serous otitis media, right ear, Other otitis externa, unspecified ear - Right. - Condition is Stable. - Discharge Instructions: Otitis Externa, Gbkx-av-Qvki, Otitis Media, Adult, Sslm-eq-Hlbu, Sinusitis, Tzoj-cw-Bhxx. - Prescriptions for Augmentin 875- 125 mg Oral Tablet - take 1 tablet by ORAL route every 12 hours for 10 days; 20 tablet. Cipro HC 0.2- 1 % Otic Drops, Suspension - instill 3 drops by OTIC route every 12 hours for 7 days Treating Otitis Externa, Right Ear; 10 milliliter. Ibuprofen 800 mg Oral Tablet - take 1 tablet by ORAL route every 8 hours As needed take with food; 30 tablet. - Medication Reconciliation, Local Pharmacy Hours form. - Follow up: [facility] ; When: 1 - 2 days; Reason: Recheck today's complaints, Continuance of care. Follow up: Emergency Department; Reason: Worsening of conditions. - Problem is new. - Symptoms are unchanged. Historical: - Allergies: SULFA (SULFONAMIDES) (Rash); - Home Meds: 1. albuterol sulfate 90 mcg/actuation Inhl HFAA every 4-6 hours 2. albuterol sulfate 2.5 mg /3 mL (0.083 %) Inhl nebu as needed 3. Depo-Provera 150 mg/mL IM susp every 3 mo 4. Mobic 7.5 mg oral tab - PMHx: Anxiety; Asthma; Depression; - PSHx: Laparoscopy; D & C; - Social history: Smoking status: Patient states former smoker of tobacco. No barriers to communication noted, The patient speaks fluent Japanese. - Family history: Not pertinent. - : The pt / caregiver states he / she is not on anticoagulants. Home medication list is obtained from the patient. - Exposure Risk Screening:: None identified. 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 7 in. (170.18 cm) (R); Pain 6/10; 16:03 Body Mass Index 34.46 (99.79 kg, 170.18 cm) lr2 MDM: 16:57 Financial registration complete. [facility] 16:58 [facility] Payment Agreement was scanned into [email or web address] and attached to record. 01/02 11:28 T-Sheet-- Draft Copy was scanned into [email or web address] and attached to record. gb Signatures: Lashell Claire, Reg Reg gb Nba Strong RN RN mlb1 Sheba Vuong, PA-C PA-C ef1 Chela Desouza RN RN rs3 Tyra Mills, Reg Reg ks16 The chart was reviewed and I authenticate all verbal orders and agree with the evaluation and treatment provided.Attachments: 01/01 16:58 [facility] Payment Agreement 01/02 11:28 T-Sheet-- Draft Copy gb Chart Complete MTDD
== END 2017-01-01 16:55 | disposition home or self-care (01) ==
LOC: M ED 15:59
DX: J01.90 Acute sinusitis, unspecified (principal); H66.91 Otitis media, unspecified, right ear; H60.501 Unspecified acute noninfective otitis externa, right ear; F41.9 Anxiety disorder, unspecified; J45.909 Unspecified asthma, uncomplicated; F32.9 Major depressive disorder, single episode, unspecified; Z87.891 Personal history of nicotine dependence; Z79.899 Other long term (current) drug therapy; Z79.3 Long term (current) use of hormonal contraceptives; Z88.2 Allergy status to sulfonamides

== ENCOUNTER → 2017-05-12 | Outpatient (REF) | payer OTHER | LOC: M SFHCPLAZ 13:01 | PROVIDERS: ATTEND Student in an Organized Health Care Education/Training Program | DX: R53.82 Chronic fatigue, unspecified (principal); R10.84 Generalized abdominal pain ==

== ENCOUNTER → 2017-05-20 | Outpatient (REF) | payer OTHER ==
[~2017-05-20] MED LIST changes: +CLAR1TAB2 PO; +DIFL150T PO; +IBUP80TA PO; +LEVAINH INH; +LOES1TAB12 PO; +MUCI600T37 PO; +PANT40TA2 PO; +PARO20TA3 PO; +PROAAER10 INH; +ZITHTAB PO
[2017-05-20 15:00] LABS: FREE T4 0.91 NG/DL (0.76-1.46)
== END ==
LOC: M LABDRAW1 12:59
PROVIDERS: ATTEND Family Medicine
DX: R53.82 Chronic fatigue, unspecified (principal)

== ENCOUNTER → 2017-07-02 | Outpatient (CLI) | payer OTHER ==
[2017-07-06 14:11] LABS: O+P EXAM Final report (.)
== END ==
LOC: M LAB 10:13
PROVIDERS: ATTEND Internal Medicine Gastroenterology
DX: K52.89 Other specified noninfective gastroenteritis and colitis (principal); R19.7 Diarrhea, unspecified

== ENCOUNTER 2017-07-13 09:07 | Outpatient (CLI) | payer OTHER ==
[~2017-07-13] VITALS: Ht 170.2 cm; Wt 97.5 kg
[~2017-07-13 09:07] MED LIST changes: -CLAR1TAB2 PO; -DIFL150T PO; -LEVAINH INH; -MUCI600T37 PO; +NS 1,000 ML IV ONE; -PANT40TA2 PO; -PARO20TA3 PO; -ZITHTAB PO
--- NOTE | 2017-07-13 12:26 | ROOR ---
Patient Name: Jenna Escobar Procedure Date: 07/13/2017 12:00 PM Date of : 1985 Age: 32 Room: [facility] Gender: Female Note Status: Finalized Procedure: Colonoscopy Indications: Chronic diarrhea Providers: Niraj Pacheco MD Referring MD: [facility] D. [facility], Admin. Requesting Provider: Medicines: Monitored Anesthesia Care Complications: No immediate complications. Procedure: Pre-Anesthesia Assessment: - Prior to the procedure, a History and Physical was performed, and patient medications and allergies were reviewed. The patient is competent. The risks and benefits of the procedure and the sedation options and risks were discussed with the patient. All questions were answered and informed consent was obtained. Patient identification and proposed procedure were verified by the physician, the nurse and the anesthesiologist in the procedure room. Mental Status Examination: alert and oriented. Airway Examination: normal oropharyngeal airway and neck mobility. Respiratory Examination: clear to auscultation. CV Examination: normal. Prophylactic Antibiotics: The patient does not require prophylactic antibiotics. Prior Anticoagulants: The patient has taken no previous anticoagulant or antiplatelet agents. ASA Grade Assessment: II - A patient with mild systemic disease. After reviewing the risks and benefits, the patient was deemed in satisfactory condition to undergo the procedure. The anesthesia plan was to use monitored anesthesia care (MAC). Immediately prior to administration of medications, the patient was re-assessed for adequacy to receive sedatives. The heart rate, respiratory rate, oxygen saturations, blood pressure, adequacy of pulmonary ventilation, and response to care were monitored throughout the procedure. The physical status of the patient was re-assessed after the procedure. The Colonoscope was introduced through the anus and advanced to the terminal ileum, with identification of the appendiceal orifice and IC valve. The colonoscopy was performed without difficulty. The patient tolerated the procedure well. The quality of the bowel preparation was good. The terminal ileum, ileocecal valve, appendiceal orifice, and rectum were photographed. Scope insertion time was 2 minutes. Scope withdrawal time was 8 minutes. The total duration of the procedure was 12 minutes. Findings: The perianal and digital rectal examinations were normal. The terminal ileum appeared normal. Biopsies were taken with a cold forceps for histology. Verification of patient identification for the specimen was done by the physician and nurse using the patient's name, date and medical record number. Estimated blood loss was minimal. Non-bleeding external and internal hemorrhoids were found during retroflexion. The hemorrhoids were medium-sized. Biopsies for histology were taken with a cold forceps from the ascending colon, transverse colon, sigmoid colon and rectum for evaluation of microscopic colitis. The exam was otherwise without abnormality. Impression: - The examined portion of the ileum was normal. Biopsied. - Non-bleeding external and internal hemorrhoids. Biopsied. - The examination was otherwise normal. Recommendation: - Patient has a contact number available for emergencies. The signs and symptoms of potential delayed complications were discussed with the patient. Return to normal activities tomorrow. Written discharge instructions were provided to the patient. - Resume previous diet. - Continue present medications. - Await pathology results. - Repeat colonoscopy at age 48 for screening purposes. - Return to GI clinic as previously scheduled 07/29/2017 at 10:30 AM - Return to primary care physician. Niraj Pacheco MD Niraj Pacheco MD 07/13/2017 12:25:51 PM This report has been signed electronically. Number of Addenda: 0 Note Initiated On: 07/13/2017 12:00 PM Estimated Blood Loss: Estimated blood loss: none.
[2017-07-13 12:40] VITALS: BP 140/88
[2017-09-20] MEDS ORDERED: PANT40TA2 PO (09:32)
[2017-09-20] MEDS ORDERED: PARO20TA3 PO (09:32)
[2017-09-20] MEDS ORDERED: CLAR1TAB2 PO (12:26)
[2017-09-20] MEDS ORDERED: ZITHTAB PO (12:26)
[2017-09-20] MEDS ORDERED: LEVAINH INH (12:26)
[2017-09-20] MEDS ORDERED: MUCI600T37 PO (12:26)
[2017-09-20] MEDS ORDERED: DIFL150T PO (12:31)
== END 2017-07-13 12:53 | disposition home or self-care (01) ==
LOC: M OPP 09:07
PROVIDERS: ATTEND Internal Medicine Gastroenterology
DX: K52.9 Noninfective gastroenteritis and colitis, unspecified (principal); K64.4 Residual hemorrhoidal skin tags; K64.8 Other hemorrhoids; M17.10 Unilateral primary osteoarthritis, unspecified knee; F41.9 Anxiety disorder, unspecified; F33.9 Major depressive disorder, recurrent, unspecified; J45.909 Unspecified asthma, uncomplicated; Z79.3 Long term (current) use of hormonal contraceptives; Z88.2 Allergy status to sulfonamides

== ENCOUNTER 2017-12-01 10:19 | Day surgery (SDC) | payer OTHER ==
[2017-12-01] MEDS ORDERED: fentaNYL 100 MCG/2 ML INJECTION (J3010) As Ordered (10:33)
[2017-12-01] MEDS ORDERED: PROPOFOL 200 MG/20 ML VIAL As Ordered ×2 (10:38→11:36)
[2017-12-01] MEDS ORDERED: LIDOCAINE 2% INJ 100 MG/5 ML SDV (FOR ANES.) As Ordered (10:38)
[2017-12-01] MEDS: NS 1,000 ML IV (10:51)
== END 2017-12-01 12:35 | disposition home or self-care (01) ==
LOC: M OPP 10:19
DX: K21.9 Gastro-esophageal reflux disease without esophagitis (principal); K29.70 Gastritis, unspecified, without bleeding; K58.9 Irritable bowel syndrome, unspecified; R12 Heartburn; R06.02 Shortness of breath; M19.90 Unspecified osteoarthritis, unspecified site; F41.9 Anxiety disorder, unspecified; F32.9 Major depressive disorder, single episode, unspecified; R05 Cough; J45.909 Unspecified asthma, uncomplicated; Z88.2 Allergy status to sulfonamides; Z79.899 Other long term (current) drug therapy
CPT/HCPCS: 43239

== ENCOUNTER 2018-01-27 08:51 | Emergency (ER) | payer OTHER ==
[2018-01-27] MEDS: NORCO, ANEXSIA 5/325MG TABLET (HYDROcodone/ACETAMINOPHEN) PO (09:23)
== END 2018-01-27 10:08 | disposition home or self-care (01) ==
LOC: M ED 08:51
DX: S90.32XA Contusion of left foot, initial encounter (principal); W10.8XXA Fall (on) (from) other stairs and steps, initial encounter; Y92.098 Other place in other non-institutional residence as the place of occurrence of the external cause; Z87.891 Personal history of nicotine dependence; Z88.2 Allergy status to sulfonamides; Z79.899 Other long term (current) drug therapy
CPT/HCPCS: 73630

== ENCOUNTER 2018-02-12 16:51 | Emergency (ER) | payer OTHER ==
[2018-02-12] MEDS: NS 1,000 ML IV (17:15)
[2018-02-12 17:53] LABS: APPEARANCE, URINE HAZY (CLEAR); BACTERIA, URINE AUTO NEGATIVE (NEGATIVE); BILIRUBIN, URINE AUTO NEGATIVE (NEGATIVE); BLOOD, URINE BLOOD NEGATIVE (NEGATIVE); COLOR, URINE YELLOW (YELLOW); GLUCOSE, URINE (UA) AUTO NEGATIVE (NEGATIVE); KETONE, URINE AUTO 1+ mg/dL (NEGATIVE); LEUKOCYTE ESTERASE, URINE AUTO NEGATIVE (NEGATIVE); MUCUS, URINE MODERATE (NEGATIVE); NITRITE, URINE AUTO NEGATIVE (NEGATIVE); PROTEIN, URINE AUTO NEGATIVE (NEGATIVE); RBC, URINE AUTO 2 /HPF (0-3); SQUAMOUS EPITHELIAL CELL UR AU 1 /HPF (0-6); UROBILINOGEN, URINE AUTO 0.2 mg/dL (0.0-2.0); WBC, URINE AUTO 4 /HPF (0-3)
[2018-02-12 18:12] LABS: CONTROL LINE UCG INT CTR LINE PRESENT; URINE PREG TEST NEGATIVE (NEGATIVE)
[2018-02-12] MEDS: TRIMETHOBENZAMIDE HCL INJ 200 MG/2 ML VIAL (J3250) IM (18:18)
[2018-02-12 18:21] LABS: BASO % 0.2 % (0.0-1.0); EOS % 0.2 % (0.0-3.0); HEMATOCRIT 45.5 % (36.0-47.0); HEMOGLOBIN 15.3 g/dl (12.0-15.5); IMMATURE GRANULOCYTE % 0.3 % (0-3.0); LYMPH # 0.8 10^3/uL (1.5-4.5); LYMPH % 6.8 % (24.0-44.0); MEAN CORPUSCULAR HEMOGLOBIN 30.1 pg (27.0-33.0); MEAN CORPUSCULAR HGB CONC 33.6 g/dl (32.0-36.5); MEAN CORPUSCULAR VOLUME 89.6 fl (80.0-96.0); MONO # 0.2 10^3/uL (0.0-0.8); NEUTROPHILS % 90.5 % (36.0-66.0); PLATELET COUNT, AUTOMATED 331 10^3/uL (150-450); RED BLOOD COUNT 5.08 10^6/uL (4.00-5.40); RED CELL DISTRIBUTION WIDTH 12.9 % (11.5-14.5); WHITE BLOOD COUNT 11.1 10^3/uL (4.0-10.0)
[2018-02-12] MEDS: KETOROLAC 30 MG/ML VIAL (J1885) IV (18:22)
[2018-02-12 18:40] LABS: ALBUMIN 3.9 GM/DL (3.2-5.2); ALBUMIN/GLOBULIN RATIO 1.03 (1.00-1.93); ALKALINE PHOSPHATASE 82 U/L (45-117); ALT/SGPT 18 U/L (12-78); AMYLASE 48 U/L (25-115); ANION GAP 5 MEQ/L (8-16); AST/SGOT 5 U/L (7-37); BILIRUBIN,DIRECT 0.1 MG/DL (0.0-0.2); BILIRUBIN,TOTAL 0.7 MG/DL (0.2-1.0); BLOOD UREA NITROGEN 11 MG/DL (7-18); C REACTIVE PROTEIN QUANTITATIV 1.82 MG/DL (0.00-0.30); CALCIUM LEVEL 8.3 MG/DL (8.5-10.1); CARBON DIOXIDE LEVEL 27 MEQ/L (21-32); CHLORIDE LEVEL 110 MEQ/L (98-107); CREATININE FOR GFR 0.62 MG/DL (0.55-1.30); GLOMERULAR FILTRATION RATE > 60.0 (>60); GLUCOSE, FASTING 98 MG/DL (70-100); LIPASE 112 U/L (73-393); POTASSIUM SERUM 3.4 MEQ/L (3.5-5.1); SODIUM LEVEL 142 MEQ/L (136-145); TOTAL PROTEIN 7.7 GM/DL (6.4-8.2)
== END 2018-02-12 19:28 | disposition home or self-care (01) ==
LOC: M ED 16:51
DX: B34.9 Viral infection, unspecified (principal); R10.10 Upper abdominal pain, unspecified; K58.9 Irritable bowel syndrome, unspecified; F32.9 Major depressive disorder, single episode, unspecified; F41.0 Panic disorder [episodic paroxysmal anxiety]; Z87.442 Personal history of urinary calculi; Z87.19 Personal history of other diseases of the digestive system; Z88.2 Allergy status to sulfonamides; Z79.899 Other long term (current) drug therapy
CPT/HCPCS: J1885

== ENCOUNTER → 2018-09-09 | Outpatient (CLI) | payer MEDICAID | LOC: M RAD 13:13 | DX: R22.9 Localized swelling, mass and lump, unspecified (principal) | CPT/HCPCS: 93971 ==

== ENCOUNTER → 2018-09-23 | Outpatient (REF) | payer OTHER, MEDICAID | LOC: M SFHCPLAZ 15:52 | DX: L72.0 Epidermal cyst (principal) | CPT/HCPCS: 88304 ==

== ENCOUNTER → 2019-01-11 | Outpatient (CLI) | payer OTHER, MEDICAID ==
[~2019-01-11] MED LIST changes: +BENT10CA PO; +CLAR1TAB2 PO; +DIFL150T PO; +LEVAINH INH; +MUCI600T37 PO; -NS 1,000 ML IV ONE; +PANT40TA3 PO; +PARO20TA3 PO; +TIGA300C2 PO; +TUMS500C PO; +ZITHTAB PO; +ZOFR4TAB14 PO
[2019-01-11 13:37] LABS: BASO % 0.4 % (0.0-1.0); EOS % 0.5 % (0.0-3.0); HEMATOCRIT 41.6 % (36.0-47.0); HEMOGLOBIN 14.5 g/dl (12.0-15.5); LYMPH # 2.2 10^3/uL (1.5-4.5); LYMPH % 27.3 % (24.0-44.0); MEAN CORPUSCULAR HEMOGLOBIN 31.8 pg (27.0-33.0); MEAN CORPUSCULAR HGB CONC 34.9 g/dl (32.0-36.5); MEAN CORPUSCULAR VOLUME 91.2 fl (80.0-96.0); MONO # 0.3 10^3/uL (0.0-0.8); MONO % 3.5 % (0.0-5.0); NEUTROPHILS # 5.4 10^3/uL (1.8-7.7); NEUTROPHILS % 67.9 % (36.0-66.0); PLATELET COUNT, AUTOMATED 408 10^3/uL (150-450); RED BLOOD COUNT 4.56 10^6/uL (4.00-5.40)
[2019-01-11 15:32] LABS: CHLAMYDIA DNA AMPLIFICATION NEGATIVE (NEGATIVE); GC DNA AMPLIFICATION NEGATIVE (NEGATIVE)
[2019-01-12 09:51] LABS: HEPATITIS C VIRUS ABY INDEX < 0.0 INDEX (<0.8); HIV 1&2 SCREEN CENTAUR NEGATIVE (NEGATIVE); RUBELLA IgG QUALITATIVE IMMUNE (IMMUNE)
== END ==
LOC: M SMT 09:50
PROVIDERS: ATTEND Advanced Practice Midwife
DX: Z36.89 Encounter for other specified antenatal screening (principal)

== ENCOUNTER → 2019-03-28 | Outpatient (CLI) | payer MEDICAID, OTHER ==
[~2019-03-28] MED LIST changes: -DOCU10ELUD PO; +DOCU5LIQ PO; +IBUP100S44; -IBUP100SUS; +OXYC1TAB23 PO; -PERCOCET PO
--- NOTE | 2019-03-29 03:44 | REP ---
Clinical: Anatomical evaluation. Comparison: None . Findings: Examination demonstrates a single live intrauterine in variable presentation. motion is identified by technologist. Placenta is noted posterior and grade grade zero without evidence for placenta previa or abruption. Amniotic fluid volume is normal. Cervix measures 3.7 cm in length and appears closed. No evidence for nuchal cord. Gestational age by LMP 18 weeks 2 days with HENOK 08/27/2019 . Gestational age by current measurements 20 weeks 0 days with HENOK 08/15/2019 . FHR equals 146 beats per minute. BPD 4.6 cm 20 weeks 0 day HC 16.9 cm 19 weeks 4 days AC 14.4 cm 19 weeks 5-day FL 3.3 cm 20 weeks 2 days HL 3.1 cm 20 weeks 1 day HC/AC ratio 1.18 Estimated weight 322 grams ( 47th percentile based on age by current measurements ). Anatomical assessment demonstrates normal structures including cranium, choroid plexus, cavum, cerebellum/posterior fossa, diaphragm, stomach, cord insertion/three-vessel cord, kidneys/bladder, spine, and upper extremities. Limited evaluation of the facial features, lungs, heart/ventricular outflow tracts, and lower extremities. Impression: 1. Single live intrauterine demonstrating appropriate estimated weight based on current age measurements. 2. Anatomical limitations as noted above may warrant reevaluation and follow-up. Electronically Signed by Noe Raya MD 03/29/2019 03:36 A
== END ==
LOC: M RAD 16:01
PROVIDERS: ATTEND Advanced Practice Midwife
DX: O09.522 Supervision of elderly multigravida, second trimester (principal); Z3A.20 20 weeks gestation of pregnancy

== ENCOUNTER 2019-05-24 11:08 | Emergency (ER) | payer OTHER ==
[~2019-05-24] VITALS: Ht 170.2 cm; Wt 110.0 kg
[2019-05-24] MEDS ORDERED: PRENTAB7 (11:16)
[2019-05-24] MEDS ORDERED: ALBUTEROL SULFATE 2.5 MG/0.5 ML INH NEB SOLN NEB ONE (13:45)
--- NOTE | 2019-05-24 14:20 | REP ---
Bilateral lower extremity Duplex Doppler venous ultrasound: Real time compression and duplex Doppler interrogation of the bilateral lower extremity deep venous system is performed. Bilaterally, the common femoral, superficial femoral and popliteal veins are fully compressible with transducer pressure and demonstrate normal spontaneous and phasic flow, without evidence of deep venous thrombosis. Impression: No evidence of deep venous thrombosis of the bilateral lower extremity femoral popliteal venous system. Electronically Signed by Bruce Robles MD 05/24/2019 02:12 P
[2019-05-24] MEDS ORDERED: ALBU83IN NEB (14:48)
[2019-05-24 14:59] VITALS: BP 137/69
[2019-06-04] MEDS ORDERED: OXYC1TAB23 PO (22:01)
== END 2019-05-24 15:00 | disposition home or self-care (01) ==
LOC: M ED 11:08
DX: O99.512 Diseases of the respiratory system complicating pregnancy, second trimester (principal); J45.901 Unspecified asthma with (acute) exacerbation; Z3A.27 27 weeks gestation of pregnancy; Z88.1 Allergy status to other antibiotic agents; Z88.2 Allergy status to sulfonamides

== ENCOUNTER → 2019-06-01 | Outpatient (REF) | payer OTHER ==
[~2019-06-01] MED LIST changes: +ALBU83IN NEB; +NITR100C2 PO; +PRENTAB7
== END ==
LOC: M LAB REF 12:54
PROVIDERS: ATTEND Advanced Practice Midwife
DX: O09.523 Supervision of elderly multigravida, third trimester (principal)

== ENCOUNTER 2019-06-04 20:40 | Outpatient (CLI) | payer OTHER ==
[~2019-06-04] VITALS: Ht 170.2 cm; Wt 109.2 kg
[~2019-06-04 20:40] MED LIST changes: -NITR100C2 PO
[2019-06-04] MEDS ORDERED: NITR100C2 PO (21:08)
[2019-06-04] MEDS ORDERED: OXYC1TAB23 PO (22:01)
== END 2019-06-04 22:21 | disposition home or self-care (01) ==
LOC: M LDO 20:40
PROVIDERS: ATTEND Specialist
DX: O23.43 Unspecified infection of urinary tract in pregnancy, third trimester (principal); R31.9 Hematuria, unspecified; O26.893 Other specified pregnancy related conditions, third trimester; R10.31 Right lower quadrant pain; Z3A.29 29 weeks gestation of pregnancy

== ENCOUNTER → 2019-06-06 | Outpatient (CLI) | payer OTHER ==
[~2019-06-06] MED LIST changes: +NITR100C2 PO
[2019-06-06 17:43] LABS: HEMOGLOBIN 11.8 g/dl (12.0-15.5); MEAN CORPUSCULAR HEMOGLOBIN 30.9 pg (27.0-33.0); MEAN CORPUSCULAR HGB CONC 34.7 g/dl (32.0-36.5); PLATELET COUNT, AUTOMATED 357 10^3/uL (150-450); RED BLOOD COUNT 3.82 10^6/uL (4.00-5.40); WHITE BLOOD COUNT 9.8 10^3/uL (4.0-10.0)
== END ==
LOC: M SMT 13:36
PROVIDERS: ATTEND Advanced Practice Midwife
DX: Z36.89 Encounter for other specified antenatal screening (principal)

== ENCOUNTER → 2019-06-22 | Outpatient (CLI) | payer OTHER | LOC: M LAB 06:48 | PROVIDERS: ATTEND Advanced Practice Midwife | DX: R73.02 Impaired glucose tolerance (oral) (principal) ==

== ENCOUNTER → 2019-06-29 | Outpatient (REF) | payer OTHER | LOC: M LAB REF 13:08 | PROVIDERS: ATTEND Advanced Practice Midwife | DX: O24.410 Gestational diabetes mellitus in pregnancy, diet controlled (principal) ==

== ENCOUNTER → 2019-07-25 | Outpatient (REF) | payer OTHER | LOC: M LAB REF 18:54 | PROVIDERS: ATTEND Advanced Practice Midwife | DX: O24.410 Gestational diabetes mellitus in pregnancy, diet controlled (principal) ==

== ENCOUNTER 2019-08-14 07:28 | Inpatient (IN) | payer OTHER ==
[2019-08-14] VITALS (17 sets, daily range): BP systolic 109–143; BP diastolic 59–93
[~2019-08-14] VITALS: Ht 170.2 cm; Wt 104.0 kg
[2019-08-14] MEDS ORDERED: PENICILLIN G POTASSIUM IV 5 MU in D5W MINI-BAG PLUS 100 ML IV STA (08:36)
[2019-08-14] MEDS ORDERED: LACTATED RINGER'S 1000 ML IV STA (08:36)
[2019-08-14 08:50] LABS: HEMATOCRIT 38.8 % (36.0-47.0); HEMOGLOBIN 13.1 g/dl (12.0-15.5); MEAN CORPUSCULAR HEMOGLOBIN 30.5 pg (27.0-33.0); MEAN CORPUSCULAR HGB CONC 33.8 g/dl (32.0-36.5); MEAN CORPUSCULAR VOLUME 90.2 fl (80.0-96.0); PLATELET COUNT, AUTOMATED 355 10^3/uL (150-450); WHITE BLOOD COUNT 8.5 10^3/uL (4.0-10.0)
[2019-08-14] MEDS: LR 1,000 ML IV SCH ×2 (10:22→17:00)
[2019-08-14] MEDS: miSOPROStol 50 MCG 1/2 TAB (S0191) SL SCH ×4 (10:38→22:00)
[2019-08-14] MEDS: PENICILLIN G POTASSIUM IV 2.5 MU in IV 1 EA IV SCH ×3 (14:03→22:15)
[2019-08-14] MEDS ORDERED: OXYTOCIN 30 UNITS IN 0.9% NaCl 500ML IV BAG (J2590) As Ordered ONE (21:18)
[2019-08-14] MEDS ORDERED: OXYTOCIN DRIP 30 UNITS in IV 1 EA IV SCH (21:30)
[2019-08-14] MEDS ORDERED: FENTANYL 2MCG/ML ROPIVACAINE 0.2% IN 0.9% NACL 100ML IVBAG As Ordered ONE (23:32)
[2019-08-15] VITALS (38 sets, daily range): BP systolic 99–166; BP diastolic 54–97
[2019-08-15] MEDS: LR 1,000 ML IV SCH (01:00)
[2019-08-15] MEDS ORDERED: ePHEDrine SULFATE 25 MG/5 ML(5MG/ML) SYRINGE IV PRN (01:45)
[2019-08-15] MEDS ORDERED: ONDANSETRON 4MG/2ML VIAL (J2405) IV PRN (01:45)
[2019-08-15] MEDS ORDERED: EPIDURAL COMMENT XX SCH (01:45)
[2019-08-15] MEDS ORDERED: LACTATED RINGER'S 1000 ML IV PRN (01:45)
[2019-08-15] MEDS ORDERED: diphenhydrAMINE INJ 50MG/ML VIAL (J1200) IV PRN (01:45)
[2019-08-15] MEDS ORDERED: REFRIGERATOR IV KEYS XX PRN (01:45)
[2019-08-15] MEDS ORDERED: FENTANYL/ROPIVACAINE/NACL BAG 100 ML EPIDURAL SCH (01:45)
[2019-08-15] MEDS ORDERED: NALOXONE INJ 0.4 MG/1 ML VIAL (J2310) IV PRN (01:45)
[2019-08-15] MEDS ORDERED: EPIDURAL/PCA KEYS XX PRN (01:45)
[2019-08-15] MEDS: miSOPROStol 50 MCG 1/2 TAB (S0191) SL SCH ×2 (02:00→06:00)
[2019-08-15] MEDS: PENICILLIN G POTASSIUM IV 2.5 MU in IV 1 EA IV SCH ×2 (02:15→06:15)
[2019-08-15] MEDS: PRENATAL VITAMINS CHEWABLE TABLET PO SCH (09:00)
[2019-08-15] MEDS ORDERED: OXYTOCIN DRIP 30 UNITS in IV 1 EA IV SCH (10:32)
--- NOTE | 2019-08-15 10:44 | DNPDOC ---
[facility] Delivery Note Delivery Note DATE OF DELIVERY: 08/15/2019 at 0924 PREDELIVERY DIAGNOSIS: 39-1/7 weeks' gestation and labor. POST DELIVERY DIAGNOSIS: Delivered. PROCEDURE: Spontaneous vaginal delivery. [employer] OFFICER: Bertrand Lujan CNM, [place] ANESTHESIA: epidural. ESTIMATED BLOOD LOSS: 400 mL. FINDINGS: 8 pounds 6 ounces; 3800 grams, male , Score 8/9, multiple variable decelerations, A1GDM. DELIVERY SUMMARY: Patient is a 34-year-old female who is now a at 39.1 weeks gestation who presented for an IOL due to A1GDM. The patient received cytotec and IV Pitocin for her induction and an epidural for pain management. The patient progressed to fully dilated at 0858 and pushed to a living male at 0924 in the VENESSA position with restitution to LOT. The anterior shoulder delivered with ease and the corpus immediately followed. The baby was placed on the maternal abdomen active and crying. The cord was clamped after pulsation ceased and cut by the FOB. A 3-vessel cord was noted. The placenta delivered spontaneously and intact at 0934. Uterine hemostasis was achieved via rapid infusion of IV Pitocin and fundal massage. The perineum, cervix, and vagina was inspected and found to have a perineal abrasion that did not need to be repaired. Mom plans to formula feed her . They are naming him Leo. Both mom and baby are in stable condition. All instruments and sponge counts are correct. BERTRAND LUJAN CNM Aug 15, 2019 10:44
[2019-08-15] MEDS ORDERED: DIBUCAINE 1% OINTMENT 30GM TOP PRN (10:45)
[2019-08-15] MEDS ORDERED: ACETAMINOPHEN TAB 650MG DOSE (2X325MG) PO PRN (10:45)
[2019-08-15] MEDS ORDERED: MEASLES,MUMPS,RUBELLA VACCINE INJ (MMR-II) (90707) SC SCH (10:45)
[2019-08-15] MEDS ORDERED: IBUPROFEN 600 MG TAB PO PRN (10:45)
[2019-08-15] MEDS ORDERED: DOCUSATE SODIUM 100 MG CAP PO PRN (10:45)
[2019-08-15] MEDS ORDERED: RHOGAM 300 MCG (1500 IU) INJ (J2790) IM SCH (10:45)
[2019-08-15] MEDS ORDERED: ANUSOL HC CREAM 30GM TOP PRN (10:45)
[2019-08-15] MEDS ORDERED: METHYLERGONOVINE MALEATE 0.2 MG TAB PO PRN (10:45)
[2019-08-15] MEDS ORDERED: SLF 3 ML SYR IV PRN (11:30)
[2019-08-15] MEDS: IBUPROFEN 800 MG TAB PO PRN ×2 (11:39→20:26)
[2019-08-15] MEDS: SLF 3 ML SYR IV SCH ×2 (14:00→22:00)
[2019-08-15] MEDS: ACETAMINOPHEN 500 MG TAB PO PRN (18:01)
[2019-08-16] MEDS: ACETAMINOPHEN 500 MG TAB PO PRN ×2 (01:51→16:16)
[2019-08-16] MEDS: SLF 3 ML SYR IV SCH ×3 (06:00→22:00)
[2019-08-16 06:46] VITALS: BP 115/66
--- NOTE | 2019-08-16 07:43 | IPNPDOC ---
Progress Note Date of Service: Aug 16, 2019 Day#: 1 Progress Note SUBJECT: She has been ambulating, voiding spontaneously without issue and tole rating regular diet. Patient reports she would like to restart Paxil. OBJECTIVE: VITAL SIGNS: Within normal limits, afebrile. Alert and oriented times three. Breath sounds clear to auscultation. Heart rate: Regular rate and rhythm, no murmurs, rubs or gallops. Abdomen: Fundus firm at U-2. Soft, NTTP. Minimal lochia. ASSESSMENT: Day 1 . PLAN: 1. Patient restarted on her Paxil. She will follow-up with her PCP for follow- up. 2. continue supportive nursing care. Anticipate discharge to home tomorrow. VS, I&O, 24H, Fishbone Vital Signs/I&O Vital Signs Date Time Temp Pulse Resp B/P (MAP) Pulse Ox O2 Delivery O2 Flow Rate FiO2 08/16/19 06:46 98.0 67 17 115/66 (82) 08/15/19 17:52 96 I&O- Last 24 Hours up to 6 AM 08/16/19 05:59 Intake Total 3834.9 ml Output Total 3050 ml Balance 784.9 ml BERTRAND FOREMAN CNM Aug 16, 2019 07:43
[2019-08-16] MEDS: PRENATAL VITAMINS CHEWABLE TABLET PO SCH (09:40)
[2019-08-16] MEDS: PARoxetine 10MG TABLET PO SCH (09:40)
[2019-08-16] MEDS: IBUPROFEN 800 MG TAB PO PRN ×2 (09:41→23:02)
[2019-08-16 18:00] VITALS: BP 129/76
[2019-08-17 05:58] VITALS: BP 142/72
[2019-08-17] MEDS: SLF 3 ML SYR IV SCH (06:00)
[2019-08-17] MEDS ORDERED: IBUP80TA PO (07:11)
[2019-08-17] MEDS: IBUPROFEN 800 MG TAB PO PRN (08:30)
[2019-08-17] MEDS: PARoxetine 10MG TABLET PO SCH (08:30)
[2019-08-17] MEDS: PRENATAL VITAMINS CHEWABLE TABLET PO SCH (08:30)
== END 2019-08-17 11:15 | disposition home or self-care (01) | DRG 560 ==
LOC: M LDI 07:28 → M OBS 08-15 11:54
PROVIDERS: ADMIT Obstetrics & Gynecology; ATTEND Advanced Practice Midwife
PROC: 3E0P7GC Introduction of Other Therapeutic Substance into Female Reproductive, Via Natural or Artificial Opening (ICD-10-PCS; 2019-08-14)
PROC: 10E0XZZ Delivery of Products of Conception, External Approach (ICD-10-PCS; principal; 2019-08-15)
DX: O24.410 Gestational diabetes mellitus in pregnancy, diet controlled (principal); O99.824 Streptococcus B carrier state complicating childbirth; Z3A.39 39 weeks gestation of pregnancy; O76 Abnormality in fetal heart rate and rhythm complicating labor and delivery; Z37.0 Single live birth

== ENCOUNTER → 2019-12-09 | Outpatient (REF) | payer OTHER, MEDICAID | LOC: M LAB REF 18:19 | PROVIDERS: ATTEND Advanced Practice Midwife | DX: Z12.4 Encounter for screening for malignant neoplasm of cervix (principal) ==

== ENCOUNTER 2020-01-27 09:29 | Day surgery (SDC) | payer OTHER ==
[~2020-01-27] VITALS: Ht 170.2 cm; Wt 108.9 kg
[~2020-01-27 09:29] MED LIST changes: +LR 1,000 ML IV ONE; +MONO0.25 PO; +PARO40TA3 PO; +TESS100C PO
[2020-01-27] MEDS ORDERED: dexameTHASONE 4 MG/ML 1ML VIAL (J1100 PER 1MG) As Ordered ONE (09:46)
[2020-01-27] MEDS ORDERED: SUGAMMADEX SODIUM 500 MG/5 ML VIAL (BRIDION) As Ordered ONE (09:46)
[2020-01-27] MEDS ORDERED: KETOROLAC 60 MG/2 ML VIAL As Ordered ONE (09:46)
[2020-01-27] MEDS ORDERED: ONDANSETRON 4MG/2ML VIAL As Ordered ONE (09:46)
[2020-01-27] MEDS ORDERED: LIDOCAINE 2% 100MG/5ML SDV (FOR ANES.) As Ordered ONE (09:46)
[2020-01-27] MEDS ORDERED: propofoL 200 MG/20 ML VIAL As Ordered ONE ×2 (09:46→12:09)
[2020-01-27] MEDS ORDERED: ACETAMINOPHEN 1000MG 100ML IV BTL (OFIRMEV) (J0131 PER 10MG) As Ordered ONE (09:46)
[2020-01-27] MEDS ORDERED: ROCURONIUM BROMIDE 50 MG/5 ML VIAL As Ordered ONE ×2 (09:46→10:00)
[2020-01-27] MEDS ORDERED: fentaNYL 100 MCG/2 ML INJECTION (J3010) As Ordered ONE ×2 (09:47→11:53)
[2020-01-27] MEDS ORDERED: MIDAZOLAM INJ 2MG/2ML VIAL (J2250 PER 1MG) As Ordered ONE (09:47)
[2020-01-27 10:09] LABS: HEMATOCRIT 42.8 % (36.0-47.0); HEMOGLOBIN 14.3 g/dl (12.0-15.5); MEAN CORPUSCULAR HEMOGLOBIN 29.9 pg (27.0-33.0); MEAN CORPUSCULAR HGB CONC 33.4 g/dl (32.0-36.5); MEAN CORPUSCULAR VOLUME 89.4 fl (80.0-96.0); PLATELET COUNT, AUTOMATED 345 10^3/uL (150-450); RED BLOOD COUNT 4.79 10^6/uL (4.00-5.40); WHITE BLOOD COUNT 5.8 10^3/uL (4.0-10.0)
[2020-01-27] MEDS ORDERED: BUPIVACAINE HCL 0.25% 10ML VIAL As Ordered ONE (10:44)
[2020-01-27] MEDS ORDERED: OXYC1TAB23 PO (11:27)
[2020-01-27] MEDS ORDERED: IBUP-1022 PO (11:28)
[2020-01-27] MEDS ORDERED: HYDROMORPHONE HCL 0.5 MG/ 0.5 ML SYRINGE (J1170 PER 1) IV PRN (12:45)
[2020-01-27] MEDS ORDERED: LR 1,000 ML IV SCH ×2 (12:45)
[2020-01-27] MEDS ORDERED: fentaNYL 100 MCG/2 ML INJECTION (J3010) IV PRN (12:45)
[2020-01-27] MEDS ORDERED: ONDANSETRON 4MG/2ML VIAL IV PRN (12:45)
[2020-01-27] MEDS ORDERED: PERCOCET 5MG/325MG TAB PO PRN (12:45)
[2020-01-27] MEDS ORDERED: MEPERIDINE INJ 25 MG/ML VIAL (J2175) As Ordered ONE (12:47)
[2020-01-27] MEDS: MEPERIDINE INJ 25 MG/ML VIAL (J2175) IV PRN ×2 (12:48→12:55)
[2020-01-27] MEDS: oxyCODONE 5MG TAB PO PRN ×2 (13:04→14:30)
[2020-01-27] MEDS ORDERED: oxyCODONE 5MG TAB As Ordered ONE (14:27)
[2020-01-27 14:50] VITALS: BP 130/65
--- NOTE | 2020-01-30 10:16 | RO ---
DATE OF OPERATION: 01/27/2020 PREOPERATIVE DIAGNOSES: 1. Menorrhagia. 2. Undesired fertility. POSTOPERATIVE DIAGNOSES: 1. Menorrhagia. 2. Undesired fertility. PROCEDURE: Laparoscopic bilateral salpingectomy. Hysteroscopy dilatation and curettage. NovaSure endometrial ablation. SURGEON: Rancho Quach MD ROUTE PROCESS ADMINISTRATOR: ANESTHESIA: General endotracheal. ESTIMATED BLOOD LOSS: Minimal. URINE OUTPUT: 30 mL. FINDINGS: Normal pelvis and upper abdomen, including uterus, fallopian tubes and ovaries. OPERATIVE SUMMARY: Patient was taken to the operating room where general endotracheal anesthesia was induced. She was prepped and draped in a sterile fashion in the dorsal lithotomy position. A sponge stick was placed in the vagina to use as a manipulator. The bladder was entered with a catheter. A periumbilical incision was made with a scalpel. A Veress needle was placed through this incision. Intra-abdominal location of the Veress was assessed with the use of a saline filled syringe. A pneumoperitoneum was created. A 5 mm trocar using Visiport was inserted. A 5 and 8 mm suprapubic port were placed under direct visualization without difficulty. The patient was placed in Trendelenburg position. Fallopian tubes were grasped with grasping instruments. The broad ligament attachments to the tubes were coagulated and incised using a LigaSure device. The tubes were both amputated near there origins. Both tubes were removed through the suprapubic port. The pneumoperitoneum was released. All instruments were removed. Skin was closed with #4-0 Monocryl subcuticular sutures. Attention was turned to the vagina. A speculum was placed. The anterior lip of the cervix was grasped with a tenaculum. The cervix was dilated. A diagnostic hysteroscope using normal saline as a distention media was placed through the internal os. Visualization of the endometrial cavity revealed the findings noted above. The endometrial cavity was normal in appearance. Sharp curettage was performed and specimen was sent to pathology. The NovaSure device was assembled and found to be in working order The cavity length was 4.0 cm. Upon insertion of the device, the cavity width was calculated at 4.6 cm. Total power setting was 101 polo. A successful cavity was assessment was performed. Coagulation was initiated. Total coagulation time was 2 minutes. The device was removed. All instruments were removed. Sponge and instrument counts were correct. The patient was extubated and went to the recovery room in stable condition.
== END 2020-01-27 14:55 | disposition home or self-care (01) ==
LOC: M SDC 09:29
PROVIDERS: ATTEND Specialist
DX: Z30.2 Encounter for sterilization (principal); N92.4 Excessive bleeding in the premenopausal period; K58.8 Other irritable bowel syndrome; K21.9 Gastro-esophageal reflux disease without esophagitis; F41.9 Anxiety disorder, unspecified; F32.9 Major depressive disorder, single episode, unspecified; J45.909 Unspecified asthma, uncomplicated; Z79.899 Other long term (current) drug therapy; Z79.51 Long term (current) use of inhaled steroids
CPT/HCPCS: 36415; 58563; 58661; 81025; 85027; 88302; 88305; J0131; J1100; J1885; J2175; J2250; J2405; J3010

== ENCOUNTER 2020-10-06 12:01 | Emergency (ER) | payer OTHER ==
[~2020-10-06] VITALS: Ht 170.2 cm; Wt 114.4 kg
[2020-10-06 12:01] VITALS: BP 126/82
[~2020-10-06 12:01] MED LIST changes: +IBUP-1022 PO; -LR 1,000 ML IV ONE; +PANT40TA29 PO; -PANT40TA3 PO
[2020-10-06] MEDS ORDERED: HYDR-3363 (12:12)
--- NOTE | 2020-10-06 13:41 | REP ---
INDICATION: cough, left sided rib pain COMPARISON: 09/20/2017 TECHNIQUE: Portable AP view of the chest FINDINGS: The mediastinum and cardiac silhouette are stable and within normal limits for portable technique. The lung mojica are clear without acute consolidation, effusion, or pneumothorax. Skeletal structures are intact. IMPRESSION: No acute cardiopulmonary process appreciated. <Electronically signed by Noe Raya > 10/06/20 1451
[2020-10-06] MEDS ORDERED: PRED20TA PO (13:44)
== END 2020-10-06 14:08 | disposition home or self-care (01) ==
LOC: M ED 12:01
DX: R05 Cough (principal); R07.89 Other chest pain; J45.909 Unspecified asthma, uncomplicated; K58.9 Irritable bowel syndrome, unspecified; Z79.899 Other long term (current) drug therapy; Z88.1 Allergy status to other antibiotic agents; Z88.2 Allergy status to sulfonamides; Z87.891 Personal history of nicotine dependence

== ENCOUNTER → 2020-10-08 | Outpatient (CLI) | payer OTHER ==
[~2020-10-08] MED LIST changes: +HYDR-3363; +PRED20TA PO
== END ==
LOC: M LABSMTC 12:57
PROVIDERS: ATTEND Family Medicine
DX: Z20.828 Contact with and (suspected) exposure to other viral communicable diseases (principal)

== ENCOUNTER 2021-11-16 20:46 | Emergency (ER) | payer OTHER ==
[~2021-11-16] VITALS: Ht 170.2 cm; Wt 100.0 kg
[2021-11-16] MEDS ORDERED: TETRACAINE 0.5% OPHTH SOLN 4ML OD ONE (22:30)
[2021-11-16] MEDS ORDERED: FLUORESCEIN OPHTH 1 MG STRIP OD ONE (22:30)
[2021-11-16] MEDS ORDERED: CIPROFLOXACIN 0.3% OPHTH SOLN 2.5ML OD ONE (23:20)
[2021-11-16] MEDS ORDERED: CIPR0.3S6 OD (23:24)
[2021-11-16 23:33] VITALS: BP 132/79
== END 2021-11-16 23:48 | disposition home or self-care (01) ==
LOC: M ED 20:46
DX: S05.01XA Injury of conjunctiva and corneal abrasion without foreign body, right eye, initial encounter (principal); X58.XXXA Exposure to other specified factors, initial encounter; Y92.89 Other specified places as the place of occurrence of the external cause; E11.9 Type 2 diabetes mellitus without complications; J45.909 Unspecified asthma, uncomplicated; F33.9 Major depressive disorder, recurrent, unspecified; F41.9 Anxiety disorder, unspecified; K58.9 Irritable bowel syndrome, unspecified; Z79.899 Other long term (current) drug therapy

== ENCOUNTER → 2022-02-10 | Outpatient (CLI) | payer OTHER ==
[~2022-02-10] MED LIST changes: +CIPR0.3S6 OD
== END ==
LOC: M RAD 16:03
PROVIDERS: ATTEND Student in an Organized Health Care Education/Training Program
DX: R10.2 Pelvic and perineal pain (principal)

== ENCOUNTER → 2022-04-18 | Outpatient (CLI) | payer OTHER ==
[~2022-04-18] MED LIST changes: +ALBU2.5V10 NEB; -ALBU83IN NEB
== END ==
LOC: M RAD 14:51
PROVIDERS: ATTEND Physician Assistant
DX: M54.2 Cervicalgia (principal)

== ENCOUNTER → 2022-05-02 | Outpatient (REF) | payer OTHER ==
[~2022-05-02] MED LIST changes: +ALBU2.5V10 INH; +LEVO750T13; +METH-1165 PO; +PARO25TA11; +TIZA10TA
== END ==
LOC: M SFHCPLAZ 17:16
PROVIDERS: ATTEND Physician Assistant
DX: R10.9 Unspecified abdominal pain (principal)

== ENCOUNTER 2022-05-05 13:27 | Emergency (ER) | payer OTHER ==
[~2022-05-05] VITALS: Ht 170.2 cm; Wt 102.7 kg
[~2022-05-05 13:27] MED LIST changes: -ALBU2.5V10 INH; -LEVO750T13; -METH-1165 PO; -PARO25TA11; -TIZA10TA
[2022-05-05 13:29] VITALS: BP 124/73
[2022-05-05] MEDS ORDERED: TIZA10TA (13:59)
[2022-05-05] MEDS ORDERED: PARO25TA11 (13:59)
[2022-05-05] MEDS ORDERED: LEVO750T13 (13:59)
[2022-05-05] MEDS ORDERED: IBUP-1022 PO (13:59)
[2022-05-05] MEDS ORDERED: ALBU2.5V10 INH (14:00)
[2022-05-05 15:16] LABS: BASO % 0.4 % (0.0-1.0); EOS # 0.1 10^3/uL (0.0-0.5); EOS % 1.9 % (0.0-3.0); HEMATOCRIT 41.9 % (36.0-47.0); HEMOGLOBIN 13.9 g/dl (12.0-15.5); LYMPH # 2.4 10^3/uL (1.5-5.0); LYMPH % 33.3 % (24.0-44.0); MEAN CORPUSCULAR HEMOGLOBIN 31.2 pg (27.0-33.0); MEAN CORPUSCULAR HGB CONC 33.2 g/dl (32.0-36.5); MEAN CORPUSCULAR VOLUME 93.9 fl (80.0-96.0); MONO # 0.3 10^3/uL (0.0-0.8); MONO % 3.6 % (2.0-8.0); NEUTROPHILS # 4.4 10^3/uL (1.5-8.5); NEUTROPHILS % 60.5 % (36.0-66.0); PLATELET COUNT, AUTOMATED 313 10^3/uL (150-450); RED BLOOD COUNT 4.46 10^6/uL (4.00-5.40); WHITE BLOOD COUNT 7.2 10^3/uL (4.0-10.0)
[2022-05-05 15:42] LABS: BLOOD UREA NITROGEN 9 MG/DL (7-18); CALCIUM LEVEL 9.5 MG/DL (8.5-10.1); CARBON DIOXIDE LEVEL 27 MEQ/L (21-32); CHLORIDE LEVEL 111 MEQ/L (98-107); CREATININE FOR GFR 0.65 MG/DL (0.55-1.30); GLOMERULAR FILTRATION RATE > 60.0 (>60); GLUCOSE, FASTING 95 MG/DL (70-100); POTASSIUM SERUM 4.3 MEQ/L (3.5-5.1); SODIUM LEVEL 144 MEQ/L (136-145)
[2022-05-05 15:43] LABS: ALBUMIN 3.5 GM/DL (3.2-5.2); ALT/SGPT 18 U/L (12-78); BILIRUBIN,DIRECT 0.1 MG/DL (0.0-0.2); BILIRUBIN,TOTAL 0.1 MG/DL (0.2-1.0); LIPASE 126 U/L (73-393); TOTAL PROTEIN 6.2 GM/DL (6.4-8.2)
[2022-05-05 15:57] LABS: HCG, SERUM QUALITATIVE NEGATIVE (NEGATIVE)
[2022-05-05] MEDS ORDERED: KETOROLAC 30 MG/ML 1ML VIAL IV ONE (16:05)
[2022-05-05] MEDS ORDERED: METH-1165 PO (17:06)
== END 2022-05-05 17:42 | disposition home or self-care (01) ==
LOC: M ED 13:27
DX: M54.50 Low back pain, unspecified (principal); E11.9 Type 2 diabetes mellitus without complications; Z87.891 Personal history of nicotine dependence; Z88.1 Allergy status to other antibiotic agents; Z88.2 Allergy status to sulfonamides
CPT/HCPCS: 74176; 80048; 80076; 81001; 83690; 84703; 85025; 96374; 99283; J1885

== ENCOUNTER → 2022-12-05 | Outpatient (CLI) | payer OTHER ==
[~2022-12-05] MED LIST changes: +ALBU2.5V10 INH; +LEVO1TAB40; +METH-1165 PO; +PARO25TA11; +TIZA10TA
[2022-12-05 16:02] LABS: APPEARANCE, URINE MANUAL CLEAR (CLEAR); COLOR, URINE MANUAL LT YELLOW (YELLOW)
[2022-12-05 16:03] LABS: BILIRUBIN, URINE MANUAL NEGATIVE (NEGATIVE); BLOOD URINE MANUAL NEGATIVE (NEGATIVE); GLUCOSE, URINE (UA) MANUAL NEGATIVE (NEGATIVE); KETONE, URINE MANUAL NEGATIVE (NEGATIVE); LEUKOCYTE ESTERASE, URINE MAN NEGATIVE (NEGATIVE); NITRITE, URINE MANUAL NEGATIVE (NEGATIVE); PROTEIN, URINE MANUAL NEGATIVE (NEGATIVE); SPECIFIC GRAVITY,URINE MANUAL 1.015 (1.002-1.035); UROBILINOGEN, URINE MANUAL NORMAL (NORMAL)
[2022-12-05 16:11] LABS: BASO # 0.1 10^3/uL (0.0-0.2); BASO % 0.6 % (0.0-1.0); EOS # 0.1 10^3/uL (0.0-0.5); EOS % 1.4 % (0.0-3.0); HEMOGLOBIN 14.1 g/dl (12.0-15.5); LYMPH # 2.3 10^3/uL (1.5-5.0); LYMPH % 27.3 % (24.0-44.0); MEAN CORPUSCULAR HEMOGLOBIN 30.4 pg (27.0-33.0); MEAN CORPUSCULAR VOLUME 94.8 fl (80.0-96.0); MONO # 0.4 10^3/uL (0.0-0.8); MONO % 4.7 % (2.0-8.0); NEUTROPHILS # 5.6 10^3/uL (1.5-8.5); NEUTROPHILS % 65.8 % (36.0-66.0); PLATELET COUNT, AUTOMATED 367 10^3/uL (150-450); RED BLOOD COUNT 4.64 10^6/uL (4.00-5.40); WHITE BLOOD COUNT 8.5 10^3/uL (4.0-10.0)
[2022-12-05 16:24] LABS: ALBUMIN 3.9 G/DL (3.2-5.2); BLOOD UREA NITROGEN 9 MG/DL (9-23); CALCIUM LEVEL 9.2 MG/DL (8.5-10.1); CARBON DIOXIDE LEVEL 29 MMOL/L (20-31); CHLORIDE LEVEL 105 MMOL/L (98-107); CREATININE FOR GFR 0.58 MG/DL (0.55-1.30); GLOMERULAR FILTRATION RATE > 60.0 (>60); GLUCOSE, FASTING 72 MG/DL (60-100); PHOSPHORUS LEVEL 4.1 MG/DL (2.5-4.9); POTASSIUM SERUM 4.3 MMOL/L (3.5-5.1); SODIUM LEVEL 141 MMOL/L (136-145)
== END ==
LOC: M PLALAB 13:27
PROVIDERS: ATTEND Student in an Organized Health Care Education/Training Program
DX: N23 Unspecified renal colic (principal)

== ENCOUNTER 2022-12-24 09:09 | Emergency (ER) | payer OTHER ==
[~2022-12-24] VITALS: Ht 170.2 cm; Wt 102.3 kg
[2022-12-24 11:46] VITALS: BP 132/67
[2022-12-24 12:23] LABS: BASO % 0.3 % (0.0-1.0); EOS # 0.1 10^3/uL (0.0-0.5); EOS % 0.8 % (0.0-3.0); HEMATOCRIT 43.8 % (36.0-47.0); HEMOGLOBIN 14.6 g/dl (12.0-15.5); LYMPH # 2.2 10^3/uL (1.5-5.0); LYMPH % 27.4 % (24.0-44.0); MEAN CORPUSCULAR HEMOGLOBIN 31.1 pg (27.0-33.0); MEAN CORPUSCULAR HGB CONC 33.3 g/dl (32.0-36.5); MEAN CORPUSCULAR VOLUME 93.2 fl (80.0-96.0); MONO # 0.3 10^3/uL (0.0-0.8); MONO % 3.4 % (2.0-8.0); NEUTROPHILS # 5.3 10^3/uL (1.5-8.5); NEUTROPHILS % 67.8 % (36.0-66.0); PLATELET COUNT, AUTOMATED 332 10^3/uL (150-450); WHITE BLOOD COUNT 7.9 10^3/uL (4.0-10.0)
[2022-12-24] MEDS ORDERED: ACETAMINOPHEN 500 MG TAB PO ONE (12:45)
[2022-12-24 12:50] LABS: LIPASE 30 U/L (12-53)
[2022-12-24 13:26] LABS: ALKALINE PHOSPHATASE 74 U/L (46-116); ALT/SGPT 20 U/L (7.0-40); AST/SGOT 14 U/L (<34); BILIRUBIN,DIRECT 0.2 MG/DL (<0.4); BILIRUBIN,TOTAL 0.7 MG/DL (0.3-1.2); BLOOD UREA NITROGEN 5 MG/DL (9-23); CALCIUM LEVEL 8.9 MG/DL (8.5-10.1); CARBON DIOXIDE LEVEL 27 MMOL/L (20-31); CHLORIDE LEVEL 106 MMOL/L (98-107); CREATININE FOR GFR 0.55 MG/DL (0.55-1.30); GLOMERULAR FILTRATION RATE > 60.0 (>60); GLUCOSE, FASTING 80 MG/DL (60-100); POTASSIUM SERUM 4.2 MMOL/L (3.5-5.1); SODIUM LEVEL 141 MMOL/L (136-145); TOTAL PROTEIN 6.9 G/DL (5.7-8.2)
[2022-12-24] MEDS ORDERED: ISOVUE-370 76% 100ML VIAL As Ordered ONE (14:38)
[2022-12-24] MEDS: GASTROGRAFIN SOLUTION 30ML PO SCH ×2 (15:13→15:45)
== END 2022-12-24 18:47 | disposition home or self-care (01) ==
LOC: M ED 09:09
DX: K59.00 Constipation, unspecified (principal); R10.32 Left lower quadrant pain; J45.909 Unspecified asthma, uncomplicated; F32.A Depression, unspecified; F41.9 Anxiety disorder, unspecified; Z88.2 Allergy status to sulfonamides; Z79.899 Other long term (current) drug therapy

== ENCOUNTER 2023-03-27 10:02 | Day surgery (SDC) | payer OTHER ==
[~2023-03-27] VITALS: Ht 170.2 cm; Wt 102.7 kg
[~2023-03-27 10:02] MED LIST changes: +ALBU8.5H INH; +CIPR0.3S37 OD; -CIPR0.3S6 OD; -HYDR-3363; +HYDR-3363 PO; +NS 1,000 ML IV ONE; -PARO25TA11; +PARO25TA11 PO
[2023-03-27] MEDS ORDERED: fentaNYL 100 MCG/2 ML INJECTION As Ordered ONE (12:16)
[2023-03-27] MEDS ORDERED: LIDOCAINE 2% 100MG/5ML SDV (FOR ANES.) As Ordered ONE (12:46)
[2023-03-27] MEDS ORDERED: propofoL 200 MG/20 ML VIAL As Ordered ONE (12:46)
[2023-03-27 13:20] VITALS: BP 134/78
== END 2023-03-27 13:35 | disposition home or self-care (01) ==
LOC: M OPP 10:02
PROVIDERS: ATTEND Internal Medicine Gastroenterology
DX: K64.4 Residual hemorrhoidal skin tags (principal); K64.8 Other hemorrhoids; K52.9 Noninfective gastroenteritis and colitis, unspecified; K29.70 Gastritis, unspecified, without bleeding; R68.81 Early satiety; R11.0 Nausea; Z79.1 Long term (current) use of non-steroidal anti-inflammatories (NSAID); Z79.51 Long term (current) use of inhaled steroids; Z79.899 Other long term (current) drug therapy; Z87.891 Personal history of nicotine dependence
CPT/HCPCS: 43239; 45380; 88305; J3010

== ENCOUNTER → 2023-07-10 | Outpatient (REF) | payer OTHER ==
[~2023-07-10] MED LIST changes: -NS 1,000 ML IV ONE
== END ==
LOC: M SFHCPLAZ 13:18
PROVIDERS: ATTEND Student in an Organized Health Care Education/Training Program
DX: H60.93 Unspecified otitis externa, bilateral (principal)

== ENCOUNTER 2023-11-16 10:01 | Emergency (ER) | payer OTHER ==
[~2023-11-16] VITALS: Ht 170.2 cm; Wt 104.6 kg
[2023-11-16] MEDS ORDERED: ERYT5OIN25 OU (12:19)
[2023-11-16 12:25] VITALS: BP 141/93; TEMP 97.1; O2SAT 97
== END 2023-11-16 12:26 | disposition home or self-care (01) ==
LOC: M ED 10:01
DX: H10.33 Unspecified acute conjunctivitis, bilateral (principal); J45.909 Unspecified asthma, uncomplicated; F41.9 Anxiety disorder, unspecified; K58.9 Irritable bowel syndrome, unspecified; F10.10 Alcohol abuse, uncomplicated; Z88.2 Allergy status to sulfonamides; Z79.52 Long term (current) use of systemic steroids; Z79.1 Long term (current) use of non-steroidal anti-inflammatories (NSAID); Z79.899 Other long term (current) drug therapy; Z79.2 Long term (current) use of antibiotics

== ENCOUNTER → 2025-09-12 | Outpatient (CLI) | payer OTHER ==
[~2025-09-12] MED LIST changes: +ERYT5OIN25 OU; -IBUP-1022 PO; +IBUP600T42 PO; +LEVA15HF2 INH; -LEVAINH INH
== END ==
LOC: M WHC 14:27
PROVIDERS: ATTEND Student in an Organized Health Care Education/Training Program
DX: Z01.411 Encounter for gynecological examination (general) (routine) with abnormal findings (principal); Z12.31 Encounter for screening mammogram for malignant neoplasm of breast; R92.323 Mammographic fibroglandular density, bilateral breasts; Z79.899 Other long term (current) drug therapy; Z88.2 Allergy status to sulfonamides; Z87.891 Personal history of nicotine dependence; N39.3 Stress incontinence (female) (male)

== ENCOUNTER → 2025-09-12 | Outpatient (REF) | payer OTHER ==
[2025-09-14 12:57] LABS: HPV APTIMA Not Detected (Not Detected)
== END ==
LOC: M PLALAB 15:02
PROVIDERS: ATTEND Student in an Organized Health Care Education/Training Program
DX: Z12.4 Encounter for screening for malignant neoplasm of cervix (principal)

== ENCOUNTER → 2025-11-13 | Outpatient (CLI) | payer OTHER | LOC: M ADAMS 09:58 | DX: J10.1 Influenza due to other identified influenza virus with other respiratory manifestations (principal) ==

== ENCOUNTER → 2025-11-13 | Outpatient (REF) | payer OTHER ==
[2025-11-13 14:08] LABS: BASO # 0.0 10^3/uL (0.0-0.2); BASO % 0.4 % (0.0-1.0); EOS # 0.0 10^3/uL (0.0-0.5); EOS % 0.4 % (0.0-3.0); LYMPH # 1.6 10^3/uL (1.5-5.0); LYMPH % 30.7 % (24.0-44.0); MONO # 0.2 10^3/uL (0.0-0.8); MONO % 4.2 % (2.0-8.0); NEUTROPHILS # 3.4 10^3/uL (1.5-8.5); NEUTROPHILS % 63.9 % (36.0-66.0); PLATELET COUNT, AUTOMATED 300 10^3/uL (150-450)
[2025-11-13 14:09] LABS: ALT/SGPT 23 U/L (7.0-40); AST/SGOT 13 U/L (<34); CALCIUM LEVEL 9.1 MG/DL (8.5-10.1); CARBON DIOXIDE LEVEL 27 MMOL/L (20-31); CHLORIDE LEVEL 104 MMOL/L (98-107); CREATININE FOR GFR 0.62 MG/DL (0.55-1.30); GLOMERULAR FILTRATION RATE > 90.0 (>58); POTASSIUM SERUM 4.1 MMOL/L (3.5-5.1); SODIUM LEVEL 143 MMOL/L (136-145)
== END ==
LOC: M SFHCADAM 09:44
DX: J10.1 Influenza due to other identified influenza virus with other respiratory manifestations (principal)